=== PATIENT | female | born 1965 | race Caucasian/White ===

== ENCOUNTER → 2016-11-23 13:58 | Outpatient (CLI) | payer BC ==
[2014-09-06 05:54] VITALS: BMI 34.7
[~2016-11-23 13:58] MED LIST: BAYER CHEWABLE81 MG PO; CRESTOR10 MG PO; CYCLOBENZAPRINE10 MG PO; CYMBALTA60 MG PO; CYTOTEC200 MCG PO; DUEXIS 800-26.1 EACH PO; ESTRACE2 MG PO; FEXOFENADINE HC60 MG PO; FLUNISOLIDE29 MCG NASAL; GENTAMICIN 0.3 %5 ML EACH EYE; GLYCOLAX527 GM PO; HCTZ25 MG PO; HYDROCODONE-APA1 TAB PO; IMITREX100 MG PO; ISOSORBIDE MONO30 M1 PO; KLONOPIN1 MG PO; LEVOTHROID112 MCG PO; LEVOTHYROXINE112 MCG PO; LYRICA200 MG PO; MUCINEX600 MG PO; NORVASC10 MG PO; PERMETHRIN60 GM TOPICAL; ROBAXIN500 MG PO; TESSALON PERLE100 MG PO; TOPAMAX50 MG PO; VITAMIN D250000 UNIT PO; ZANAFLEX4 MG PO; ZIAC 5-6.25 MG1 TAB PO; ZIAC 5/6.25 MG1 TAB PO; ZOFRAN4 MG PO
== END | disposition home or self-care (01) ==
LOC: D.CT 13:58
DX: R91.8 Other nonspecific abnormal finding of lung field (principal); R76.9 Abnormal immunological finding in serum, unspecified

== ENCOUNTER → 2016-12-30 17:20 | Outpatient (CLI) | payer BC ==
[2014-09-06 05:54] VITALS: BMI 34.7
[~2016-12-30 17:20] MED LIST changes: -BAYER CHEWABLE81 MG PO; -CRESTOR10 MG PO; -CYMBALTA60 MG PO; -DUEXIS 800-26.1 EACH PO; -FEXOFENADINE HC60 MG PO; -FLUNISOLIDE29 MCG NASAL; -GLYCOLAX527 GM PO; -HCTZ25 MG PO; -IMITREX100 MG PO; -ISOSORBIDE MONO30 M1 PO; -KLONOPIN1 MG PO; -LEVOTHYROXINE112 MCG PO; -LYRICA200 MG PO; -MUCINEX600 MG PO; -NORVASC10 MG PO; -PERMETHRIN60 GM TOPICAL; -ROBAXIN500 MG PO; -TESSALON PERLE100 MG PO; -TOPAMAX50 MG PO; -VITAMIN D250000 UNIT PO; -ZANAFLEX4 MG PO; -ZIAC 5-6.25 MG1 TAB PO; -ZOFRAN4 MG PO
== END | disposition home or self-care (01) ==
LOC: D.LABREF 17:20
DX: J44.9 Chronic obstructive pulmonary disease, unspecified (principal)

== ENCOUNTER 2017-01-13 10:44 | Emergency (ER) | payer BC ==
[2014-09-06 05:54] VITALS: BMI 34.7
[2017-01-13 11:31] LABS: BASOPHILS 0.2 % (0.0-2.0); HEMATOCRIT 33.9 % (36.0-48.0); HEMOGLOBIN 11.8 g/dL (12-16); IMMATURE GRANULOCYTES 0.1 % (0-5); LYMPHOCYTES 42.3 % (15-50); MCH 30.8 pg (26.0-34.0); MCHC 34.8 g/dL (31.0-37.0); MCV 88.5 fL (80.0-100.0); MEAN PLATELET VOLUME 9.6 fL (7.4-10.4); MONOCYTES 7.6 % (2-11); NEUTROPHILS 46.8 % (40-80); PLATELET COUNT 227 10x3/uL (130-400); RBC 3.83 10x6/uL (4.00-5.40); RDW 12.7 % (11.5-14.5); WBC 8.4 10x3/uL (4.8-10.8)
[2017-01-13 11:48] LABS: UDS - AMPHET NEGATIVE QUAL (NEGATIVE); UDS - BARB NEGATIVE QUAL (NEGATIVE); UDS - BENZO NEGATIVE QUAL (NEGATIVE); UDS - COCAINE NEGATIVE QUAL (NEGATIVE); UDS - METH NEGATIVE QUAL (NEGATIVE); UDS - OPIATE POSITIVE QUAL (NEGATIVE); UDS - PCP NEGATIVE QUAL (NEGATIVE); UDS - THC NEGATIVE QUAL (NEGATIVE)
[2017-01-13 11:52] LABS: ALBUMIN 3.4 g/dL (3.4-5.0); ALKALINE PHOSPHATASE 92 U/L (46-116); ALT (SGPT) 26 U/L (10-68); BILIRUBIN - TOTAL 0.21 mg/dL (0.2-1.3); CALC OSMOLALITY 267 mosm/kg (275-300); CALCIUM 8.3 mg/dL (8.5-10.1); CARBON DIOXIDE 22.9 mmol/L (21.0-32.0); CHLORIDE - SERUM 97 mmol/L (98-107); CREATININE - SERUM 1.2 mg/dL (0.6-1.3); GLUCOSE 91 mg/dL (74-106); POTASSIUM - SERUM 3.9 mmol/L (3.5-5.1); PROTEIN - SERUM 6.7 g/dL (6.4-8.2); SODIUM 131 mmol/L (136-145); TROPONIN-I < 0.017 ng/mL (0.000-0.060); UREA NITROGEN 26 mg/dL (7-18); eGFR NON AFRICAN AMERICAN 50 mL/min (90-120)
== END 2017-01-13 16:10 | disposition home or self-care (01) ==
LOC: D.ER 10:44
PROVIDERS: Physician Assistant
DX: R07.9 Chest pain, unspecified (principal); R06.02 Shortness of breath; F17.200 Nicotine dependence, unspecified, uncomplicated; I10 Essential (primary) hypertension

== ENCOUNTER 2017-01-20 07:21 | Outpatient (CLI) | payer BC ==
[~2017-01-20] VITALS: Ht 167.6 cm; Wt 102.3 kg
--- NOTE | ~2017-01-20 | HEMODYNAMI ---
PATIENT:GEORGIA ODONNELL MEDICAL RECORD: [id number] : 65 LOCATION:D.CAT ADMISSION DATE: 01/20/17 Generatedon:01/20/20179:35 Patient name: GEORGIA ODONNELL Patient #: [id number] SSN: : 1965 Date of study: 01/20/2017 Page: Of Hemodynamic Procedure Report Patient Data Patient Demographics Procedure consent was obtained First Name: GEORGIA Gender: Female Last Name: BELLE : 1965 [facility] Initial: CHRIS Age: 51 year(s) Patient #: [id number] Race: Unknown Additional ID: [id number] Contact details [address]: [address] [place] [address] State: [place] City: [place] Zip code: [address] Admission Admission Data Admission Date: 01/20/2017 Admission Time: 7:21 Height (in.): 66 Height (cm.): 167.64 Procedure Procedure Types Cath Procedure Diagnostic Procedure LHC LHC w/Coronaries FFR/IVUS Intra-Coronary IVUS Initial Miscellaneous Procedures Moderate Sedation up to 30 minutes Procedure Description Procedure Date Procedure Date: 01/20/2017 Procedure Start Time: 8:58 Procedure End Time: 9:34 Procedure Staff Name Function Lc Covarrubias MD Performing Physician Aury Seaman RN Nurse Adis Silverio RT Monitor Christiano Kaiser RT Scrub Procedure Data Cath Procedure Fluoroscopy Diagnostic fluoroscopy Total fluoroscopy Time: 5.4 time: 5.4 min min Diagnostic fluoroscopy Total fluoroscopy dose: 774 dose: 774 mGy mGy Contrast Material Contrast Material Type Amount (ml) Isovue 300 81 Entry Location Entry Primary Successful Side Size Upsize Upsize Entry Closure Oliveira ccessful Closure Location (Fr) 1 (Fr) 2 (Fr) Remarks Device Remarks Radial Right 6 Fr Mechanical artery Short Compression Femoral Right 6 Fr Exoseal artery Short Estimated blood loss: 10 ml Diagnostic catheters Device Type Used For End Catheter Placement Terumo 5Fr Sugar Tree 110cm Procedure catheter Terumo 5Fr Judah 110cm Procedure catheter Procedure Complications No complications Procedure Medications Medication Administration Route Dosage Oxygen NC 2 l/min Heparin Flush Bag added to field 2 bags (1000units/500ml NS) Lidocaine 2% added to field 20 Radial Cocktail added to field 1 syringe (Verapomil 2mg/Nitro 400mcg/Heparin 1500units) Versed I.V. 1 mg Fentanyl I.V. 50 mcg Versed I.V. 0.5 mg Fentanyl I.V. 50 mcg Radial Cocktail I.A. 1 syringe (Verapomil 2mg/Nitro 400mcg/Heparin 1500units) Heparin Bolus I.V. 7000 units Hemodynamics Rest Heart Rate: 60 (bpm) Pressure Samples Time Site Value (mmHg) Purpose Heart Use Rate(bpm) 9:02 LV 90/13,17 Snapshot 74 9:02 AO 95/36(62) Pullback 58 9:02 LV 105/15,22 Pullback 58 9:07 AO 86/64(73) Snapshot 58 9:07 AO 104/65(84) Snapshot 59 Gradients Valve Time Site 1 Site 2 Mean SEP/DFP Peak To Heart Use (mmHg) (sec/min) Peak Rate (mmHg) (bpm) Aortic 9:02 LV AO 10 16 10 58 105/15,22 95/36(62) Calculations Valve P-P Mean Valve Index Valve Source Name Gradient Area Flow (cm2) Aortic 10 10 10 10 Snapshots Pre Cath Intra NCS Post Cath Vital Signs Time Heart Resp SPO2 NIBP Rhythm Pain Sedation Rate (ipm) (%) (mmHg) Status Level (bpm) 8:41:54 59 18 98 115/65(93) NSR 0 (11) 10(A) , No pain 8:46:08 58 18 97 110/61(87) NSR 0 (11) 10(A) , No pain 8:50:22 60 19 97 125/63(90) NSR 0 (11) 10(A) , No pain 8:54:34 56 16 100 107/63(80) NSR 0 (11) 9(A) , No pain 8:58:45 56 16 99 118/56(72) NSR 0 (11) 9(A) , No pain 9:03:06 58 16 95 113/44(70) NSR 0 (11) 9(A) , No pain 9:07:19 55 16 94 112/57(70) NSR 0 (11) 9(A) , No pain 9:11:36 57 16 95 96/55(85) NSR 0 (11) 9(A) , No pain 9:15:41 57 16 96 104/63(89) NSR 0 (11) 9(A) , No pain 9:19:51 60 16 95 108/64(71) NSR 0 (11) 9(A) , No pain 9:24:05 59 16 96 110/56(81) NSR 0 (11) 9(A) , No pain 9:27:30 60 16 97 104/57(84) NSR 0 (11) 9(A) , No pain 9:31:36 62 6 97 96/59(81) NSR 0 (11) 9(A) , No pain Medications Time Medication Route Dose Verified Delivered Reason Notes Effectiveness by by 8:41:33 Oxygen NC 2 l/min Lc Aury Per physician Dax Seaman RN 8:41:41 Heparin Flush added 2 bags Lc Lc used for Bag to Dax Covarrubias MD procedure (1000units/500ml field NS) 8:41:50 Lidocaine 2% added 20ml Lc Lc used for to vial Dax Covarrubias MD procedure field 8:42:00 Radial Cocktail added 1 Lc Lc used for (Verapomil to syringe Dax Covarrubias MD procedure 2mg/Nitro field 400mcg/Heparin 1500units) 8:47:31 Versed I.V. 1 mg Lc Aury for sedation Dax Seaman RN 8:47:42 Fentanyl I.V. 50 mcg Lc Aury for sedation Dax Seaman RN 8:51:00 Versed I.V. 0.5 mg Lc Aury for sedation Dax Seaman RN 8:51:03 Fentanyl I.V. 50 mcg Lc Aury for sedation Dax Seaman RN 9:00:36 Radial Cocktail I.A. 1 Lc Lc for (Verapomil syringe Dax Covarrubias MD vasodilation 2mg/Nitro 400mcg/Heparin 1500units) 9:17:26 Heparin Bolus I.V. 7000 Lc Lc for dose units Dax Covarrubias MD anticoagulation verified wt dr covarrubias Procedure Log Time Note 8:07:47 Time tracking: Regular hours 8:07:52 Plan of Care:Hemodynamics will remain stable., Cardiac rhythm will remain stable., Comfort level will be maintained., Respiratory function will remain adequate., Patient/ family verbilizes understanding of procedure., Procedure tolerated without complication., Recovers from procedure without complications.. 8:15:21 Adis Tsangley RT(R) sent for patient. Start room use. 8:23:15 Diagnostic Cath status Elective 8:23:18 ACC Patient presents with Stable Angina CCS Anginal Class 2--Slight limitation of ordinary activity. 8:24:14 Patient Height : 167.64 cm 8:35:26 Patient received from Pre/Post Procedure Room to CCL 2 Alert and oriented. Tansferred to table in Supine position. 8:35:27 Correct patient and procedure confirmed by team. 8:35:27 Warm blankets applied, and ryan hugger turned on for patient comfort. 8:35:29 ECG and BP/O2 sat monitors applied to patient. 8:35:29 Signed procedure consent form obtained from patient. 8:40:46 Vital chart was started 8:41:33 Oxygen 2 l/min NC was administered by Aury Seaman RN; Per physician; 8:41:41 Heparin Flush Bag (1000units/500ml NS) 2 bags added to field was administered by Lc Covarrubias MD; used for procedure; 8:41:50 Lidocaine 2% 20ml vial added to field was administered by Lc Covarrubias MD; used for procedure; 8:42:00 Radial Cocktail (Verapomil 2mg/Nitro 400mcg/Heparin 1500units) 1 syringe added to field was administered by Lc Covarrubias MD; used for procedure; 8:46:01 Baseline sample Acquired. 8:46:06 Rhythm: sinus bradycardia 8:46:14 Full Disclosure recording started 8:46:21 H&P Date Dictated: 01/17/2017 Within 30 days and on chart., H&P Addendum completed by physician on day of procedure. (MUST COMPLETE FOR ALL OUTPATIENTS). 8:46:21 Pre-procedure instructions explained to patient. 8:46:21 Pre-op teaching completed and patient verbalized understanding. 8:46:23 Family in waiting room. 8:46:24 Patient NPO since Midnight. 8:46:27 Is the patient allergic to Iodine/contrast media? No. 8:46:29 Is patient on blood thinner?No 8:46:30 Patient diabetic? No. 8:46:39 Previous problem with sedation/anesthesia? No ? 8:46:46 Snore? Yes 8:46:47 Sleep apnea? No 8:46:47 Deviated septum? No 8:46:48 Opens mouth fully? Yes 8:46:49 Sticks out tongue? Yes 8:46:50 Airway obstruction? No ? 8:46:52 Dentures? No ? 8:46:57 Pre procedure: right dorsailis pedis pulse 1+ Palpable, but thready & weak; easily obliterated 8:46:58 Modified Michael's test Ulnar < 7 seconds 8:47:00 Patient pain scale 0/10 ?. 8:47:06 IV patent on arrival in left forearm with 0.9% NaCl at [facility]. 8:47:08 Lab results completed and on chart. 8:47:13 Right Radial & Right Groin area was prepped with chlora-prep and draped in sterile fashion 8:47:14 Alarms reviewed by R. N. 8:47:14 Sharps counted by scrub and verified by R.N. 8:47:16 --------ALL STOP TIME OUT------ 8:47:16 Final Timeout: patient, procedure, and site verified with staff and physician. All members of the team are in agreement. 8:47:18 Right Radial & Right Groin site verified by team. 8:47:21 Physical assessment completed. ASA score P 2 - A patient with mild systemic disease as per Lc Covarrubias MD. 8:47:23 Sedation plan: IV Moderate Sedation Versed, Fentanyl 8:47:31 Versed 1 mg I.V. was administered by Aury Seaman RN; for sedation; 8:47:34 Use device set Radial Dx 8:47:35 Tegaderm 4 x 4 opened to sterile field. 8:47:36 Acist Manifold opened to sterile field. 8:47:36 Acist Hand Control opened to sterile field. 8:47:38 Acist Syringe opened to sterile field. 8:47:38 Medline Cath Pack opened to sterile field. 8:47:38 Bag Decanter opened to sterile field. 8:47:39 Terumo 6Fr Slender Glidesheath opened to sterile field. 8:47:39 St Sotero 260cm J .035 wire opened to sterile field. 8:47:40 MBrace Wrist Support opened to sterile field. 8:47:42 Fentanyl 50 mcg I.V. was administered by Aury Seaman RN; for sedation; 8:48:48 Cook 21G 4cm Radial Needle opened to sterile field. 8:51:00 Versed 0.5 mg I.V. was administered by Aury Seaman RN; for sedation; 8:51:03 Fentanyl 50 mcg I.V. was administered by Aury Seaman RN; for sedation; 8:58:47 Procedure started. 8:58:53 Local anesthetic to right radial artery with Lidocaine 2% by Lc Covarrubias MD.INITIAL ACCESS ONLY 9:00:00 A 6 Fr Short sheath was inserted into the Right Radial artery 9:00:36 Radial Cocktail (Verapomil 2mg/Nitro 400mcg/Heparin 1500units) 1 syringe I.A. was administered by Lc Covarrubias MD; for vasodilation; 9:00:46 A Terumo 5Fr Sugar Tree 110cm catheter was advanced over the wire and used for Procedure. 9:01:58 Zero performed for pressure channel P1 9:02:25 LV angiography performed. 9:02:27 LV gram done using CORMIER 9:02:32 EF : 60 % 9:02:48 LV hemodynamics recorded. 9:02:51 Injector settings: Ml/sec: 5, Volume: 15, 9:03:55 RCA angiography performed. 9:04:44 Catheter exchanged over wire. 9:04:49 A Terumo 5Fr Judah 110cm catheter was advanced over the wire and used for Procedure. 9:06:35 LCA angiography performed. 9:11:21 Catheter exchanged over wire. 9:11:57 Terumo 6Fr Wilmot Sheath opened to sterile field. 9:11:58 [employer] BasixCompak Inflation Kit opened to sterile field. 9:11:58 Amos BMW Montello 2 J-tip 300cm 0.014 guide wir opened to sterile field. 9:11:58 High Pressure Extension Tubing (Dax) opened to sterile field. 9:11:59 Terumo TR Band Standard opened to sterile field. 9:13:40 Local anesthetic to right femoral artery with Lidocaine 2% by Lc Covarrubias MD.ADDITIONAL ACCESS 9:14:23 A 6 Fr Short sheath was inserted into the Right Femoral artery 9:14:39 Cordis 6FR XBLAD 3.5 guide catheter opened to sterile field. 9:14:56 6 Fr XBLAD 3.5 guide catheter was inserted over the wire 9:16:31 [place] Eyak Eagleye IVUS Catheter opened to sterile field. 9:17:26 Heparin Bolus 7000 units I.V. was administered by Lc Covarrubias MD; for anticoagulation; dose verified wtih dr covarrubias 9:18:06 BMW wire advanced. 9:18:37 Wire advanced across lesion. 9:19:04 IVUS catheter advanced over wire. 9:20:49 IVUS pass to LAD lesion performed. 9:24:08 IVUS catheter removed over wire. 9:24:36 Wire removed. 9:24:37 Guide catheter removed. 9:24:39 Cordis 6Fr Exoseal opened to sterile field. 9:24:53 Sheath removed intact; hemostasis achieved with Exoseal to the Right Femoral artery. 9:25:11 Procedure ended.(Physican Out) 9:25:32 Fluoroscopy time 05.40 minutes. 9:25:36 Flurop Dose total: 774 9:25:36 Fluoroscopy dose: 774 mGy 9:25:53 Contrast amount:Isovue 300 81ml. 9:26:04 Sharps counted by scrub and verified by R.N. 9:26:11 Insertion/operative site no bleeding no hematoma. 9:28:44 Sheath removed intact; hemostasis achieved with Mechanical Compression to the Right Radial artery. 9:28:50 TR band inflated with 12cc of air. 9:28:52 Insertion/operative site no bleeding no hematoma. 9:28:54 Post Procedure Pulses reassessed and unchanged 9:28:58 Post-op/insertion site Right Femoral artery dressed using a 4 x 4 and Tegaderm. 9:29:00 Post-procedure physical assessment completed. ASA score P 2 - A patient with mild systemic disease as per Lc Covarrubias MD. 9:29:08 Post procedure rhythm: unchanged. 9:29:11 Estimated blood loss: 10 ml 9:29:12 Post procedure instruction explained to patient.Patient verbalizes understanding. 9:29:13 Patient needs reinforcement of post procedure teaching. 9:29:32 Procedure type changed to Cath procedure, Diagnostic procedure, LHC, LHC w/Coronaries, FFR/IVUS, Intra-Coronary IVUS Initial, Miscellaneous Procedures, Moderate Sedation up to 30 minutes 9:29:40 Procedure Complication : No complications 9:31:57 Procedure and supply charges have been captured, reviewed, submitted and are correct. 9:34:11 Vital chart was stopped 9:34:12 See physician's report for complete and final results. 9:34:13 Report given to Pre/Post Procedure Room. 9:34:18 Patient transfered to Pre/Post Procedure Room with Stretcher. 9:34:20 Procedure ended. 9:34:20 Full Disclosure recording stopped 9:34:26 End room use (Document Last) Device Usage Item Name Manufacture Quantity Catalog Hospital Part Current Minimal Lot# / Number Charge Number Stock Stock Serial# Code Tegaderm 4 1 [id number] [id number] 527048 5 x 4 Acist Acist 1 25103 922084 286297 345330 5 Manifold Medical [employer] Inc Acist Hand Acist 1 34800 656134 790829 961272 5 Control Medical Systems Inc Acist Acist 1 13765 459872 137433 833822 20 Syringe Medical Systems Inc Medline Cardinal 1 [id number] 783992 53916 040984 5 Cath Pack Health Bag Microtek 1 2002S 692062 71463 869722 5 [employer]er[employer] Inc. Terumo 6Fr Terumo 1 [id number] 391882 535668 093749 [address] S[address] St Sotero 1 296806 188242 072655 372589 30 260cm J .035 wire MBrace Advanced 1 [id number] 372211 08717 064875 5 Wrist Vascular Support Dynamics Cook 21G Toptal 1 [id number] 288048 013856 598012 5 4cm Radial Needle Terumo 5Fr Terumo 1 405013 164227 516894 515705 5 Sugar Tree 110cm catheter Terumo 5Fr Terumo 1 405023 172447 188426 289022 5 Judah 110cm catheter Terumo 6Fr Terumo 1 [id number] 204097 716937 457035 40 Wilmot Sheath Merit Merit 1 [id number] 521216 215032 252259 15 BasixCompak Medical Inflation Kit Amos BMW Amos 1 [id number] 787124 008452 673190 5 Montello 2 Vascular J-tip 300cm 0.014 guide wir High Merit 1 [id number] 423861 78125 429942 10 Pressure Medical Extension Tubing (Covarrubias) Terumo TR Terumo 1 [id number] 352893 505246 160699 40 Band Standard Cordis 6FR Cardinal 1 [id number] 323468 680859 203793 10 XBLAD 3.5 Health guide catheter [place] 1 [id number] 206648 551864 145426 8 Eyak Eagleye IVUS Catheter Cordis 6Fr Cardinal 1 EX600 593398 316337 009506 10 [facility] Health Signature Audit [place] Stage Time Signature Unsigned Intra-Procedure 01/20/2017 Adis Silverio 9:35:09 AM RT(R) Signatures Monitor : Adis Silverio RT Signature : Date : Time : [place] [id number] [facility] [place] [address]
--- NOTE | ~2017-01-20 | OP ---
PATIENT NAME: GEORGIA ODONNELL MEDICAL RECORD: [id number] :65 LOCATION:D.CAT ADMISSION DATE: SURGEON: GEE FINK M.D. DATE OF OPERATION: 01/20/2017 REFERRING PHYSICIAN: Gucci Larios MD. PROCEDURES PERFORMED: 1. Selective coronary angiography. 2. Left heart catheterization with ventriculogram. 3. Intravascular ultrasound of the LAD. INDICATION: A 51-year-old who presents with chest discomfort and abnormal stress test. EQUIPMENT USED: Diagnostic 5-Slovak Judah catheter. INTERVENTION: A 6-Slovak XB LAD guide, BMW guidewire, intravascular ultrasound catheter. TECHNIQUE: A 6-Slovak sheath was inserted in retrograde fashion in the right radial artery. Next, selective coronary angiography was performed in standard views 5-Slovak Judah catheter. Left heart catheterization was performed using Judah catheter as well. CORONARY ANATOMY: 1. Left main: Left main trunk is moderate in caliber. It gives rise to the LAD and circumflex. There is no obstruction. 2. LAD: This is a moderate-caliber vessel extending to the apex. The proximal to mid vessel demonstrates smooth 40% stenosis. 3. Circumflex: This vessel is moderate in caliber. It is a smooth-walled vessel and angiographically normal. 4. Right coronary: This vessel is large in caliber and dominant. The mid vessel has a smooth 20%-30% stenosis. 5. Left ventricle: Left ventricle is normal in size and function. No wall motion abnormalities are seen. Estimated ejection fraction 60%. DESCRIPTION OF INTERVENTION: There was some concern that the LAD lesion may have been worsened on the angiogram. She had a positive stress test. At this point, a femoral approach was performed as there was not sufficient backup with the diagnostic catheter. A 6-Slovak sheath was inserted in retrograde fashion in the right common femoral artery. Next, 7000 units of heparin was infused. A 6-Slovak XB LAD guide was advanced and engaged in the left main coronary artery. Next, a BMW guidewire was placed in the distal vessel. Intravascular ultrasound catheter was then advanced and a run was performed visualizing the proximal to mid LAD. On pullback to the mid LAD, there appeared to be an eccentric 60% stenosis. The proximal vessel appeared to have about 40% stenosis. There is some mild plaque noted in the proximal LAD as well as the distal left main. At this point, the wire and guide were removed. IMPRESSION: Moderate disease involving the LAD. It does not appear to be flow-limiting by IVUS. RECOMMENDATIONS: I will place her on Imdur to see if this will resolve her symptoms, may also consider Cardiolite stress test and make sure there is no OPERATIVE REPORT [id number] GEORGIA ODONNELL evidence of ischemia on the anterior wall. TRANSINT:[id number] Voice Confirmation ID: [id number] DOCUMENT ID: [id number] GEE FINK M.D. CC: [id number] DICTATION DATE: 01/20/17932 CHARGE MASTER SPECIALIST: 01/20/17 [address] [facility] [address] [place] [address]
[2017-01-20] MEDS ORDERED: CYMBALTA60 MG PO (07:39)
[2017-01-20] MEDS ORDERED: ROBAXIN500 MG PO (07:39)
[2017-01-20] MEDS ORDERED: DUEXIS 800-26.1 EACH PO (07:40)
[2017-01-20] MEDS ORDERED: HCTZ25 MG PO (07:41)
[2017-01-20] MEDS ORDERED: LYRICA200 MG PO (07:41)
[2017-01-20] MEDS ORDERED: KLONOPIN1 MG PO (07:41)
[2017-01-20] MEDS ORDERED: NORVASC10 MG PO (07:42)
[2017-01-20] MEDS ORDERED: TOPAMAX50 MG PO (07:42)
[2017-01-20] MEDS ORDERED: VITAMIN D250000 UNIT PO (07:43)
[2017-01-20] MEDS ORDERED: TESSALON PERLE100 MG PO (07:44)
[2017-01-20] MEDS ORDERED: LEVOTHYROXINE112 MCG PO (07:45)
[2017-01-20] MEDS ORDERED: MUCINEX600 MG PO (07:45)
[2017-01-20] MEDS ORDERED: ZIAC 5-6.25 MG1 TAB PO (07:45)
[2017-01-20] MEDS ORDERED: IMITREX100 MG PO (07:46)
[2017-01-20] MEDS ORDERED: ZOFRAN4 MG PO (07:46)
[2017-01-20] MEDS ORDERED: ZANAFLEX4 MG PO (07:47)
[2017-01-20] MEDS ORDERED: FEXOFENADINE HC60 MG PO (07:48)
[2017-01-20] MEDS ORDERED: FLUNISOLIDE29 MCG NASAL (07:48)
[2017-01-20] MEDS ORDERED: BAYER CHEWABLE81 MG PO (07:49)
[2017-01-20] MEDS ORDERED: PERMETHRIN60 GM TOPICAL (07:49)
[2017-01-20] MEDS ORDERED: GLYCOLAX527 GM PO (07:49)
[2017-01-20] MEDS ORDERED: CRESTOR10 MG PO (07:50)
[2017-01-20 07:53] VITALS: BP 110/47; Ht 167.6 cm; Wt 102.3 kg
[2017-01-20 08:04] LABS: BASOPHILS 0.3 % (0.0-2.0); EOSINOPHILS 2.9 % (0-7); HEMATOCRIT 35.7 % (36.0-48.0); HEMOGLOBIN 12.2 g/dL (12-16); IMMATURE GRANULOCYTES 0.2 % (0-5); LYMPHOCYTES 43.2 % (15-50); MCH 30.7 pg (26.0-34.0); MCHC 34.2 g/dL (31.0-37.0); MCV 89.7 fL (80.0-100.0); MEAN PLATELET VOLUME 10.1 fL (7.4-10.4); MONOCYTES 8.1 % (2-11); NEUTROPHILS 45.3 % (40-80); PLATELET COUNT 219 10x3/uL (130-400); RBC 3.98 10x6/uL (4.00-5.40); RDW 12.6 % (11.5-14.5); WBC 5.8 10x3/uL (4.8-10.8)
[2017-01-20 08:15] LABS: ANION GAP 13.2 mmol/L (8-16); CALCIUM 8.9 mg/dL (8.5-10.1); CARBON DIOXIDE 25.3 mmol/L (21.0-32.0); CREATININE - SERUM 1.2 mg/dL (0.6-1.3); POTASSIUM - SERUM 3.5 mmol/L (3.5-5.1)
--- NOTE | 2017-01-20 09:58 | NUR ---
TR BAND TO R/WRIST CDI NO BLEEDING NO HEMATOMA NOTED. 6 FR EXOSEAL R/GROIN CDI NO BLEEDING NO HEMATOMA NOTED. VSS WITH CHEST PAIN DENIED O2 AT 2 LITERS NASAL SAT 97% INSTRUCTED PATIENT AND FAMILY ON NEED TO KEEP HEAD FLAT ON PILLOW WITH RLE STRAIGHT AND NO BENDING OR FLEXING OF WRIST
[2017-01-20] MEDS ORDERED: ISOSORBIDE MONO30 M1 PO (10:06)
--- NOTE | 2017-01-20 10:36 | NUR ---
HR 76 BP 128/65 CHEST PAIN IS DENIED. TR BAND TO R/WRIST CDI NO BLEEDING NO HEMATOMA NOTED. 6 FR EXOSEAL R/GROIN CDI NO BLEEDING NO HEMATOMA NOTED. FAMILY AT SIDE
--- NOTE | 2017-01-20 10:48 | NUR ---
VSS WITH CHEST PAIN DENIED TR BAND REMAINS CDI INTACT. R/GROIN SOFT CDI SANDWICH AND DRINK TO BEDSIDE
--- NOTE | 2017-01-20 11:55 | NUR ---
1145 PT DENIES ANY C/O. TR BAND TO RIGHT WRIST IS CDI, NO BLEEDING OR HEMATOMA NOTED. DRESSING TO RIGHT GROIN IS CDI, NO BLEEDING OR HEMATOMA NOTED, PEDAL PULSES PALPABLE. DENIES ANY C/O.
--- NOTE | 2017-01-20 12:48 | NUR ---
PATIENT SLEEPING QUIETLY NO DISTRESS VSS
--- NOTE | 2017-01-20 13:15 | NUR ---
PIV REMOVED WITH DRESSING APPLIED PATIENT UP TO BATHROOM WITH NO COMPLAINTS. BACK TO ROOM WITH DAUGHTER AT SIDE
--- NOTE | 2017-01-20 13:35 | NUR ---
TR BAND REMOVED WITH NO BLEEDING NO HEMATOMA NOTED. 6 FR EXOSEAL R/GROIN CDI CHEST PAIN IS DENIED. VERBAL AND WRITTEN DISCHARGE INSTRUCTIONS GONE OVER WITH PATIENT AND DAUGHTER. SCRIPT IN HAND FOR IMDUR 30 MG Q DAY LEFT VIA WC TO PARKING FOR TRANSPORT HOME
== END 2017-01-20 13:37 ==
LOC: D.CATH 07:21
PROVIDERS: Internal Medicine Cardiovascular Disease
DX: I25.10 Atherosclerotic heart disease of native coronary artery without angina pectoris (principal); R94.39 Abnormal result of other cardiovascular function study

== ENCOUNTER → 2017-01-28 07:19 | Outpatient (CLI) | payer BC ==
[2017-01-20 07:53] VITALS: BMI 36.4
[~2017-01-28 07:19] MED LIST changes: +BAYER CHEWABLE81 MG PO; +CRESTOR10 MG PO; +CYMBALTA60 MG PO; +DUEXIS 800-26.1 EACH PO; +FEXOFENADINE HC60 MG PO; +FLUNISOLIDE29 MCG NASAL; +GLYCOLAX527 GM PO; +HCTZ25 MG PO; +IMITREX100 MG PO; +ISOSORBIDE MONO30 M1 PO; +KLONOPIN1 MG PO; +LEVOTHYROXINE112 MCG PO; +LYRICA200 MG PO; +MUCINEX600 MG PO; +NORVASC10 MG PO; +PERMETHRIN60 GM TOPICAL; +ROBAXIN500 MG PO; +TESSALON PERLE100 MG PO; +TOPAMAX50 MG PO; +VITAMIN D250000 UNIT PO; +ZANAFLEX4 MG PO; +ZIAC 5-6.25 MG1 TAB PO; +ZOFRAN4 MG PO
== END | disposition home or self-care (01) ==
LOC: D.RT 07:19
DX: R13.12 Dysphagia, oropharyngeal phase (principal); J44.9 Chronic obstructive pulmonary disease, unspecified

== ENCOUNTER 2017-03-01 12:04 | Outpatient (CLI) | payer BC ==
[~2017-03-01] VITALS: Ht 167.6 cm; Wt 95.9 kg
--- NOTE | ~2017-03-01 | HEMODYNAMI ---
PATIENT:GEORGIA ODONNELL MEDICAL RECORD: [id number] : 65 LOCATION:D.CAT ADMISSION DATE: 03/01/17 Generatedon:03/01/201716:01 Patient name: GEORGIA ODONNELL Patient #: [id number] SSN: : 1965 Date of study: 03/01/2017 Page: Of Hemodynamic Procedure Report Patient Data Patient Demographics Procedure consent was obtained First Name: GEORGIA Gender: Female Last Name: BELLE : 1965 [facility] Initial: CHRIS Age: 51 year(s) Patient #: [id number] Race: Unknown Additional ID: [id number] Contact details [address]: [address] [place] [address] State: [place] City: [place] Zip code: [address] Past Medical History Allergies Allergen Reaction Date Comments Reported Sulfa drugs 03/01/2017 Other allergy 03/01/2017 Erythromycin Admission Admission Data Admission Date: 03/01/2017 Admission Time: 12:04 Procedure Procedure Types Cath Procedure PCI Procedure Coronary Stent Initial Miscellaneous Procedures Moderate Sedation up to 30 minutes Procedure Description Procedure Date Procedure Date: 03/01/2017 Procedure Start Time: 15:29 Procedure End Time: 16:00 Procedure Staff Name Function Lc Verduzco MD Performing Physician Jesu Thomas RN Nurse Ioana Driscoll RT Monitor Wilfredo Lala RT Scrub Christiano Kaiser RT Commanding Officer Motorized Squad Procedure Data Cath Procedure Fluoroscopy Diagnostic fluoroscopy Total fluoroscopy Time: 5.6 time: 5.6 min min Diagnostic fluoroscopy Total fluoroscopy dose: 816 dose: 816 mGy mGy Contrast Material Contrast Material Type Amount (ml) Isovue 300 92 Entry Location Entry Primary Successful Side Size Upsize Upsize Entry Closure Succes sful Closure Location (Fr) 1 (Fr) 2 (Fr) Remarks Device Remarks Femoral Right 6 Fr Exoseal artery Short Estimated blood loss: 10 ml Procedure Complications No complications Procedure Medications Medication Administration Route Dosage Oxygen NC 2 l/min Heparin Flush Bag added to field 2 bags (1000units/500ml NS) 0.9% NaCl I.V. ml/hr Fentanyl I.V. 100 mcg Versed I.V. 2 mg Fentanyl I.V. 50 mcg Versed I.V. 1 mg Fentanyl I.V. 50 mcg Versed I.V. 1 mg Nitroglycerin IC/IA I.C. 50 mcg Heparin Bolus I.V. 9500 units Nitroglycerin IC/IA I.C. 50 mcg Brilinta P.O. 180 mg Hemodynamics Rest Heart Rate: 68 (bpm) Snapshots Pre Cath Intra NCS Post Cath Vital Signs Time Heart Resp SPO2 NIBP (mmHg) Rhythm Pain Sedation Rate (ipm) (%) Status Level (bpm) 15:14:08 65 18 100 149/80(104) NSR 0 (11) 10(A) , No pain 15:18:26 63 18 100 143/76(109) NSR 0 (11) 10(A) , No pain 15:22:40 60 17 99 114/77(98) NSR 0 (11) 10(A) , No pain 15:26:54 60 19 99 120/58(84) NSR 0 (11) 10(A) , No pain 15:31:12 60 17 96 110/55(79) NSR 0 (11) 9(A) , No pain 15:36:17 63 18 96 101/70(94) NSR 0 (11) 9(A) , No pain 15:40:23 67 16 96 91/71(86) NSR 0 (11) 9(A) , No pain 15:45:20 66 18 97 119/67(83) NSR 0 (11) 9(A) , No pain 15:49:36 63 18 97 100/61(86) NSR 0 (11) 9(A) , No pain 15:53:44 68 19 97 109/62(84) NSR 0 (11) 9(A) , No pain 15:57:53 65 17 98 115/72(104) NSR 0 (11) 10(A) , No pain Medications Time Medication Route Dose Verified Delivered Reason Notes Effectiveness by by 15:19:17 Oxygen NC 2 Jesu Nails Per physician l/min William Thomas RN RN 15:19:27 Heparin Flush added 2 Jesu Nails used for Bag to bags William Thomas RN procedure (1000units/500ml field RN NS) 15:19:39 0.9% NaCl I.V. ml/hr Jesu Jesu Per physician William Thomas RN RN 15:24:51 Fentanyl I.V. 100 Jesu Jesu for sedation mcg William Thomas RN RN 15:24:57 Versed I.V. 2 mg Jesu Jesu for sedation William Thomas RN RN 15:27:39 Fentanyl I.V. 50 Jesu Jesu for sedation mcg William Thomas RN RN 15:28:20 Versed I.V. 1 mg Jesu Jesu for sedation William Thomas RN RN 15:29:30 Fentanyl I.V. 50 Jesu Jesu for sedation mcg William Thomas RN RN 15:29:34 Versed I.V. 1 mg Jesu Jesu for sedation William Thomas RN RN 15:38:52 Nitroglycerin I.C. 50 Jesu Lc for IC/IA mcg William Verduzco MD vasodilation RN 15:39:10 Heparin Bolus I.V. 9500 Jesu Jesu for units William Thomas RN anticoagulation RN 15:50:12 Nitroglycerin I.C. 50 Jesu Lc for IC/IA mcg William Verduzco MD vasodilation RN 15:57:28 Brilinta P.O. 180 Jesu Jesu for mg William Thomas RN antiplatelet RN therapy Procedure Log Time Note 15:00:01 Time tracking: Regular hours 15:00:03 Jesu Thomas RN sent for patient. Start room use. 15:00:05 Plan of Care:Hemodynamics will remain stable., Cardiac rhythm will remain stable., Comfort level will be maintained., Respiratory function will remain adequate., Patient/ family verbilizes understanding of procedure., Procedure tolerated without complication., Recovers from procedure without complications.. 15:02:29 Bag Decanter opened to sterile field. 15:02:53 Acist Syringe opened to sterile field. 15:02:54 Medline Cath Pack opened to sterile field. 15:03:09 Tegaderm 4 x 4 opened to sterile field. 15:03:11 Acist Manifold opened to sterile field. 15:03:14 St Sotero 260cm J .035 wire opened to sterile field. 15:03:16 Merit BasixCompak Inflation Kit opened to sterile field. 15:03:17 Terumo 6Fr [place] Sheath opened to sterile field. 15:03:26 Acist Hand Control opened to sterile field. 15:12:53 Patient received from Pre/Post Procedure Room to CCL 2 Alert and oriented. Tansferred to table in Supine position. 15:12:54 Warm blankets applied, and ryan hugger turned on for patient comfort. 15:12:54 Correct patient and procedure confirmed by team. 15:12:55 Signed procedure consent form obtained from patient. 15:12:56 ECG and BP/O2 sat monitors applied to patient. 15:12:57 Full Disclosure recording started 15:12:58 Vital chart was started 15:13:02 Rhythm: sinus rhythm 15:14:21 Baseline sample Acquired. 15:17:36 H&P Date Dictated: 02/25/2017 Within 30 days and on chart., H&P Addendum completed by physician on day of procedure. (MUST COMPLETE FOR ALL OUTPATIENTS). 15:17:38 Pre-procedure instructions explained to patient. 15:17:39 Pre-op teaching completed and patient verbalized understanding. 15:17:40 Family in waiting room. 15:17:42 Patient NPO since Midnight. 15:17:59 Patient allergic to Sulfa drugs 15:18:07 Patient allergic to Other allergyErythromycin 15:18:13 Is the patient allergic to Iodine/contrast media? No. 15:18:16 Is patient on blood thinner?No 15:18:24 Patient diabetic? No. 15:18:27 Previous problem with sedation/anesthesia? No ? 15:18:28 Snore? No 15:18:29 Sleep apnea? No 15:18:30 Deviated septum? No 15:18:31 Opens mouth fully? Yes 15:18:31 Sticks out tongue? Yes 15:18:33 Airway obstruction? No ? 15:18:34 Dentures? No ? 15:18:37 Pre procedure: right dorsailis pedis pulse 2+ Normal; easily identifiable; not easily obliterated 15:18:42 Patient pain scale 0/10 ?. 15:18:47 IV patent on arrival in left hand with 0.9% NaCl at [facility]. 15:18:59 Lab results completed and on chart. 15:19:03 Right groin area was prepped with chlora-prep and draped in sterile fashion 15:19:05 Alarms reviewed by Cyndi Song 15:19: Sharps counted by scrub and verified by R.N. 15:19:17 Oxygen 2 l/min NC was administered by Jesu Thomas RN; Per physician; 15::27 Heparin Flush Bag (1000units/500ml NS) 2 bags added to field was administered by Jesu Thomas RN; used for procedure; 15::39 0.9% NaCl ml/hr I.V. was administered by Jesu Thomas RN; Per physician; 15::00 Final Timeout: patient, procedure, and site verified with staff and physician. All members of the team are in agreement. 15:22:01 Right groin site verified by team. 15::04 Physical assessment completed. ASA score P 2 - A patient with mild systemic disease as per Lc Verduzco MD. 15:22:08 Sedation plan: IV Moderate Sedation Versed, Fentanyl 15:24:51 Fentanyl 100 mcg I.V. was administered by Jesu Thomas RN; for sedation; 15::57 Versed 2 mg I.V. was administered by Jesu Thomas RN; for sedation; 15::39 Fentanyl 50 mcg I.V. was administered by Jesu hTomas RN; for sedation; 15:28:20 Versed 1 mg I.V. was administered by Jesu Thomas RN; for sedation; 15:28:25 Zero performed for pressure channel P1 15:29:21 Procedure started. 15:29:24 Local anesthetic to right femoral artery with Lidocaine 2% by Lc Verduzco MD.INITIAL ACCESS ONLY 15:29:30 Fentanyl 50 mcg I.V. was administered by Jesu Thomas RN; for sedation; 15:29:34 Versed 1 mg I.V. was administered by Jesu Thomas RN; for sedation; 15:33:13 A 6 Fr Short sheath was inserted into the Right Femoral artery 15:33:54 Amos BMW [place] 2 Straight 300cm 0.014 guide opened to sterile field. 15:33:55 High Pressure Extension Tubing (Dax) opened to sterile field. 15:33:56 Cordis 6FR XBLAD 3.5 guide catheter opened to sterile field. 15:34:15 6 Fr XBLAD 3.5 guide catheter was inserted over the wire 15:37:02 RUBINA wire advanced. 15:38:52 Nitroglycerin IC/IA 50 mcg I.C. was administered by Lc Verduzco MD; for vasodilation; 15:39:10 Heparin Bolus 9500 units I.V. was administered by Jesu Thomas RN; for anticoagulation; 15:44:27 Inflation Number: 1 A Medtronic Resolute 2.75 X 26 stent was prepped and advanced across the Mid LAD. The stent was deployed at 10 PEACE for 0:20 (min:sec). 15:45:19 Stent catheter was removed intact over wire. 15:49:23 Inflation Number: 2 A Medtronic Resolute 2.75 X 12 stent was prepped and advanced across the Mid LAD. The stent was deployed at 10 PEACE for 0:34 (min:sec). 15:49:39 Stent catheter was removed intact over wire. 15:50:12 Nitroglycerin IC/IA 50 mcg I.C. was administered by Lc Verduzco MD; for vasodilation; 15:52:29 Wire removed. 15:52:30 Guide catheter removed. 15:53:09 Sheath removed intact; hemostasis achieved with Exoseal to the Right Femoral artery. 15:53:12 Procedure ended.(Physican Out) 15:53:27 Fluoroscopy time 05.60 minutes. 15:53:39 Flurop Dose total: 816 15:53:39 Fluoroscopy dose: 816 mGy 15:53:42 Contrast amount:Isovue 300 92ml. 15:53:44 Sharps counted by scrub and verified by R.N. 15:53:46 Insertion/operative site no bleeding no hematoma. 15:53:52 Post-op/insertion site Right Femoral artery dressed using a 4 x 4 and Tegaderm. 15:53:56 Post right femoral artery:stable, clean and dry 15:53:58 Post Procedure Pulses reassessed and unchanged 15:54:00 Post-procedure physical assessment completed. ASA score P 2 - A patient with mild systemic disease as per Lc Verduzco MD. 15:54:02 Post procedure rhythm: unchanged. 15:54:04 Estimated blood loss: 10 ml 15:54:06 Post procedure instruction explained to patient.Patient verbalizes understanding. 15:54:06 Patient needs reinforcement of post procedure teaching. 15:54:23 Procedure type changed to Cath procedure, PCI procedure, Coronary Stent Initial, Miscellaneous Procedures, Moderate Sedation up to 30 minutes 15:54:29 Procedure Complication : No complications 15:57:13 Cordis 6Fr Exoseal opened to sterile field. 15:57:28 Brilinta 180 mg P.O. was administered by Jesu Thomas RN; for antiplatelet therapy; 15:57:52 Procedure and supply charges have been captured, reviewed, submitted and are correct. 15:57:54 See physician's report for complete and final results. 15:57:58 Report given to Pre/Post Procedure Room. 16:00:43 Vital chart was stopped 16:00:46 Patient transfered to Pre/Post Procedure Room with Stretcher. 16:00:58 Procedure ended. 16:00:58 Full Disclosure recording stopped 16:01:03 End room use (Document Last) Intervention Summary Intervention Notes Time ActionType Lesion and Equipment Action# Pressure Duration Attributes Used 15:44:27 Place stent Mid LAD Medtronic 1 10 00:20 Resolute 2.75 X 26 stent 15:49:23 Place stent Mid LAD Medtronic 2 10 00:34 Resolute 2.75 X 12 stent Device Usage Item Name Manufacture Quantity Catalog Hospital Part Current Minimal Lot# / Number Charge Number Stock Stock Serial# Code Bag [facility] 1 2002S 188098 69022 713252 5 Decanter Medical Inc. Acist Acist 1 07385 798684 105368 473000 20 Syringe Medical Systems Inc Medline Cardinal 1 [id number] 581291 47234 711694 5 MicroPort ([place]) [facility] 4 3M 1 1626W 223794 514997 815320 5 x 4 Acist Acist 1 86580 904197 627202 212360 [address] S[address] St Sotero 1 306869 959321 458626 606709 30 260cm J .035 wire Merit Merit 1 [id number] 472375 089888 676043 15 BasixCompak Medical Inflation Kit Terumo 6Fr Terumo 1 [id number] 899718 630460 860642 40 [place] Sheath Acist Hand Acist 1 30875 832300 862688 096226 5 Control Medical Systems Inc Amos BMW Amos 1 6093905 541844 099352 319445 5 [place] 2 Vascular Straight 300cm 0.014 guide High Merit 1 [id number] 224446 47395 939521 10 Pressure Medical Extension Tubing (Verduzco) Cordis 6FR Cardinal 1 [id number] 611715 767298 531584 10 XBLAD 3.5 Health guide catheter Medtronic Medtronic 1 [id number] 373334 244085 5 [id number] Resolute 2.75 X 26 stent Medtronic Medtronic 1 [id number] 196726 023131 9 [id number] Resolute 2.75 X 12 stent Cordis 6Fr Cardinal 1 [id number] 073928 517240 885779 10 [facility] Signature Audit [place] Stage Time Signature Unsigned Intra-Procedure 03/01/2017 Ioana 4:01:22 PM Counts RT(R) Signatures Monitor : Ioana Signature : Counts RT Date : Time : [address] [address]
[2017-03-01] MEDS ORDERED: AEROSPAN8.9 GM INH (12:39)
[2017-03-01] MEDS ORDERED: FUROSEMIDE40 MG PO (12:39)
[2017-03-01] MEDS ORDERED: FISH OIL 1,0001 CA1 PO (12:39)
[2017-03-01] MEDS ORDERED: ATROVENT 0.02%2.5 ML UPD (12:40)
[2017-03-01] MEDS ORDERED: LYRICA200 MG PO (12:41)
[2017-03-01] MEDS ORDERED: MUCINEX600 MG PO (12:41)
[2017-03-01] MEDS ORDERED: ZOFRAN4 MG PO (12:43)
[2017-03-01] MEDS ORDERED: OMEPRAZOLE40 MG PO (12:43)
[2017-03-01] MEDS ORDERED: PROAIR HFA8.5 GM INH (12:44)
[2017-03-01] MEDS ORDERED: SYMBICORT 16010.2 GM INH (12:45)
[2017-03-01] MEDS ORDERED: TOPAMAX100 MG PO (12:46)
[2017-03-01] MEDS ORDERED: ZANAFLEX4 MG PO (12:46)
[2017-03-01 12:52] VITALS: BP 120/67; Ht 167.6 cm; Wt 95.9 kg
[2017-03-01 13:01] LABS: BASOPHILS 0.7 % (0-2); EOSINOPHILS 7.5 % (0-7); HEMATOCRIT 34.7 % (36.0-48.0); HEMOGLOBIN 11.8 g/dL (12-16); IMMATURE GRANULOCYTES 0.2 % (0-5); LYMPHOCYTES 35.3 % (15-50); MCH 30.7 pg (26.0-34.0); MCV 90.4 fL (80.0-100.0); NEUTROPHILS 49.3 % (40-80); PLATELET COUNT 222 10x3/uL (130-400); RBC 3.84 10x6/uL (4.00-5.40); RDW 13.1 % (11.5-14.5)
[2017-03-01 13:36] LABS: ANION GAP 15.6 mmol/L (8-16); CALCIUM 9.2 mg/dL (8.5-10.1); CARBON DIOXIDE 21.3 mmol/L (21.0-32.0); POTASSIUM - SERUM 3.9 mmol/L (3.5-5.1)
--- NOTE | 2017-03-01 16:30 | NUR ---
RESTING, RIGHT GROIN CDI, NO HEMATOMA OR BLEEDING NOTED, SOFT TO TOUCH.
[2017-03-01] MEDS ORDERED: BRILINTA90 MG PO (16:47)
--- NOTE | 2017-03-01 17:00 | NUR ---
CONTINUES TO REST, RIGHT GROIN CDI, NO CHANGES NOTED. FAMILY WENT TO DINNER
--- NOTE | 2017-03-01 20:10 | NUR ---
UP TO REST ROOM-VOID, DRINKING COFFEE, DENIES CHEST PAIN, IV D'C WITH CATH TIP INTACT, WRITTEN AND VERBAL INSTRUCTIONS GIVEN AND UNDERSTOOD. RIGHT GROIN CDI, NO HEMATOMA OR BLEEDING NOTED, SOFT TO TOUCH. FAMILY AT SIDE. DENIES FURTHUR NEEDS.
--- NOTE | 2017-03-03 08:04 | OP ---
PATIENT NAME: GEORGIA ODONNELL MEDICAL RECORD: [id number] :65 LOCATION:D.CAT ADMISSION DATE: SURGEON: GEE FINK M.D. DATE OF OPERATION: 03/01/2017 REFERRING PHYSICIAN: Gucci Larios MD. PROCEDURES PERFORMED: PTCA and stent placed in LAD. INDICATION: A 51-year-old with coronary artery disease presents with recurrent angina that is becoming unstable. EQUIPMENT USED: A 6-Kosovan XB LAD guide, BMW guide wire, 2.75 x 26 mm Resolute stent, 2.75 x 12 mm Resolute stent. DESCRIPTION OF INTERVENTION: A 6-Kosovan sheath was inserted in retrograde fashion in the right common femoral artery. Next, a 6-Kosovan XB LAD guide was advanced and engaged in the left main coronary. Injections revealed a 67% stenosis in the proximal LAD. It appeared worse than the last angiogram this previous month. It was somewhat hazy suggestive of a ruptured plaque. At this point, a BMW guide wire was placed down the distal LAD. A 100 units per kilogram of heparin was then infused. A 2.75 x 26 mm Resolute stent was placed across these 2 lesions in question. The stent was deployed at 10 atmospheres. Injection reveals stent to be widely patent with 0% residual stenosis. There was significant waste in the stent at deployment. Injection shows stent to be widely patent. 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 A 2.75 x 12-mm Resolute stent was placed proximal to the existing stent. The stent was deployed at 12 atmospheres. Injection revealed both stents to be widely patent with 0% residual stenosis. There is marked improvement in distal flow as well as the caliber of the vessel. At this point, the wire and guide were removed. IMPRESSION: Successful percutaneous transluminal coronary angioplasty and stenting to the LAD with 0% residual stenosis. TRANSINT:[id number] Voice Confirmation ID: [id number] DOCUMENT ID: [id number] GEE FINK M.D. at 0804 CC: [id number] DICTATION DATE: 03/01/17 1604 DATA ANALYST: 03/02/17 0008 DEP CLI 03/01/17 [place] [address]
== END 2017-03-01 20:30 | disposition home or self-care (01) ==
LOC: D.CATH 12:04
PROVIDERS: Internal Medicine Cardiovascular Disease
DX: I25.110 Atherosclerotic heart disease of native coronary artery with unstable angina pectoris (principal)

== ENCOUNTER → 2017-03-23 12:38 | Outpatient (CLI) | payer BC ==
[2017-03-01 12:52] VITALS: BMI 34.1
[~2017-03-23 12:38] MED LIST changes: +AEROSPAN8.9 GM INH; +ATROVENT 0.02%2.5 ML UPD; +BRILINTA90 MG PO; +FISH OIL 1,0001 CA1 PO; +FUROSEMIDE40 MG PO; +OMEPRAZOLE40 MG PO; +PROAIR HFA8.5 GM INH; +SYMBICORT 16010.2 GM INH; +TOPAMAX100 MG PO; +VALIUM5 MG PO
== END | disposition home or self-care (01) ==
LOC: D.CT 12:38
DX: M54.12 Radiculopathy, cervical region (principal); R20.9 Unspecified disturbances of skin sensation

== ENCOUNTER 2017-03-24 16:44 | Observation (INO) | payer BC ==
[~2017-03-24] VITALS: Ht 167.6 cm; Wt 95.4 kg
[~2017-03-24 16:44] MED LIST changes: -VALIUM5 MG PO
[2017-03-24 17:28] LABS: BASOPHILS 0.3 % (0-2); EOSINOPHILS 3.8 % (0-7); HEMATOCRIT 36.7 % (36.0-48.0); HEMOGLOBIN 12.3 g/dL (12-16); IMMATURE GRANULOCYTES 0.2 % (0-5); LYMPHOCYTES 32.9 % (15-50); MCHC 33.5 g/dL (31.0-37.0); MCV 92.4 fL (80.0-100.0); MEAN PLATELET VOLUME 10.5 fL (7.4-10.4); MONOCYTES 6.7 % (2-11); NEUTROPHILS 56.1 % (40-80); PLATELET COUNT 214 10x3/uL (130-400); RBC 3.97 10x6/uL (4.00-5.40); WBC 6.6 10x3/uL (4.8-10.8)
[2017-03-24 17:51] LABS: ALBUMIN 3.8 g/dL (3.4-5.0); ALKALINE PHOSPHATASE 111 U/L (46-116); ALT (SGPT) 37 U/L (10-68); BILIRUBIN - TOTAL 0.17 mg/dL (0.2-1.3); CALC OSMOLALITY 275 mosm/kg (275-300); CALCIUM 8.9 mg/dL (8.5-10.1); CARBON DIOXIDE 25.2 mmol/L (21.0-32.0); CHLORIDE - SERUM 101 mmol/L (98-107); CREATININE - SERUM 1.1 mg/dL (0.6-1.3); GLUCOSE 110 mg/dL (74-106); POTASSIUM - SERUM 3.5 mmol/L (3.5-5.1); SODIUM 137 mmol/L (136-145); UREA NITROGEN 16 mg/dL (7-18); eGFR NON AFRICAN AMERICAN 55 mL/min (90-120)
[2017-03-24 18:03] LABS: CHOLESTEROL, TOTAL 262 mg/dL (0-200); CKMB 0.9 U/L (0.0-3.6); CREATINE KINASE 108 UL (21-215); HDL CHOLESTEROL 52 mg/dL (32-96); LDL CHOLESTEROL 182 mg/dL (0-100); LDL-HDL RATIO 3.5 ratio (1.5-3.5); TRIGLYCERIDE 142 mg/dL (30-200)
[2017-03-24 18:07] LABS: TROPONIN-I < 0.017 ng/mL (0.000-0.060)
[2017-03-24] MEDS ORDERED: DUEXIS 800-26.1 EACH PO (21:52)
[2017-03-24 21:53] VITALS: BP 105/43; Ht 167.6 cm; Wt 95.4 kg
[2017-03-24] MEDS ORDERED: VALIUM5 MG PO (21:53)
[2017-03-25] VITALS: BP 94/78
[2017-03-25 04:00] VITALS: BP 88/40
--- NOTE | 2017-03-25 07:18 | NUR ---
PT LAYING FLAT IN BED SLEEPING RR EVEN AND UNLABORED. NO S/S DISTRESS NOTED. FAMILY MEMBER AT BEDSIDE. WILL CONT TO MONITOR
[2017-03-25 07:56] VITALS: BP 90/54
--- NOTE | 2017-03-25 08:06 | NUR ---
PAGEDerrick JARAMILLO FOR PT HOME MEDS TO BE RESTARTED. PT VERY UPSET ABOUT NOT GETTING HER HOME MEDS.
[2017-03-25] MEDS ORDERED: SYNTHROID112 MCG PO (08:28)
--- NOTE | 2017-03-25 08:30 | NUR ---
PT IS VERY UPSET THAT SHE IS NPO AND NOT GETTING HER HOME MEDICATIONS. PT CRYING. CALLED CLINT NASRA AND WENT OVER ALL OF PTS HOME MEDICATIONS. CLINT GAVE OK TO RESTART KLONOPIN FOR NOW. WENT IN TO GIVE PT HER MEDICATIONS AND SHE IS STILL VERY UPSET THAT HER HOME MEDS HAVE NOT ALL BEEN RESTARTED. EXPLAINED TO PT THE HOSPITAL PROCESS AND THAT THE DR NEEDS TO EVAL PT BEFORE MEDS CAN BE RESTARTED. PT IS ALSO NPO UNTIL CARDIOLOGY EVALUATES HER. PT STATES THAT SHE WANTS DR ESTEBAN TO COME AND SEE HER. I EXPLAINED TO PT THAT DR ESTEBAN IS NOT [employer] SUPERVISOR THIS WEEK AND THAT WE CAN NOT CALL DR ESTEBAN WHEN HE IS NOT [employer] SUPERVISOR FOR HOSPITAL CALLS. EXPLAINED THAT DR RIZO IS [employer] SUPERVISOR THIS WEEK AND HE WILL BE BY TODAY TO SEE HER. PT VERBALIZES UNDERSTANDING. YELLED OUT I WALKED OUT OF THE ROOM "TELL DR FINK I WANT TO BE FIRST ON THE LIST IF THEY CATH ME!".
[2017-03-25 08:32] VITALS: BP 104/69
--- NOTE | 2017-03-25 10:31 | NUR ---
CALLED TO PT ROOM PT CO PAIN STILL FROM FIBROMYALGIA. PT HAS ALREADY RECEIVED MORPHINE PER EMAR 2 HOURS AGO. NOT DUE AGAIN UNTIL 1230. EXPLAINED THIS TO PT. DAUGHTER EXCLAIMS "SO WHAT IS SHE SUPPOSED TO DO JUST SIT HERE IN PAIN?!" TOLD FAMILY AND PT THAT I HAVE ALREADY TALKED WITH THE DRS AND THEY WOULD NOT ALLOW ME TO RESTART ANY OF HER HOME MEDICATIONS. SOON THEY EVAL PT MAYBE THAT CAN REEVALUATE MEDICATIONS. PT STATES THAT IT MAY BE OVERSTIMULATION CAUSING IT AND ASKED STAFF TO CLUSTER CARE. WILL RELAY TO THE MACHINE BILLER.
[2017-03-25 12:00] VITALS: BP 124/64
--- NOTE | 2017-03-25 14:31 | NUR ---
EKG FOR 1430 DONE AND PLACED ON PT CHART.
[2017-03-25] MEDS ORDERED: ISOSORBIDE MONO30 M1 PO (15:22)
[2017-03-25 17:01] LABS: CKMB 0.7 U/L (0.0-3.6); CREATINE KINASE 68 UL (21-215)
[2017-03-25 17:02] LABS: TROPONIN-I < 0.017 ng/mL (0.000-0.060)
--- NOTE | 2017-03-25 18:00 | NUR ---
PT SITTING UP IN BED WITH DAUGHTER AT BEDSIDE DENIES NEEDS
[2017-03-25 19:00] VITALS: BP 103/48
--- NOTE | 2017-03-25 20:10 | NUR ---
DAUGHTER IN [place] ASKING WHEN HER MOTHERS MEDS WILL BE GIVEN BECAUSE HER MOTHER IS HURTING, MANUELER INFORMED THAT MEDICATIONS WILL BE GIVEN SHORTLY AND PAIN MEDS ARE NOT DUE UNTIL 9 PM.
--- NOTE | 2017-03-25 21:01 | NUR ---
HS MEDS GIVEN WITH FRESH ICE WATER, PTS 14 YEAR OLD DAUGHTER AT BED SIDE ASKING WHAT MEDICATIONS HER MOTHER IS RECIEVING, NAMED OFF EACH MEDICATIONS IT WAS SCANNED INTO THE COMPUTER AND AGAIN WHILE IT WAS BEING OPENED. MORPHINE 4 MG ALSO GIVEN FOR C/O PAIN TO LEFT SHOULDER AND ARM, RATES PAIN AT A 10 ON PAIN SCALE. PTS DAUGHTER ASKED IF I CAN PUSH THE MEDICATION SLOW, INFORMED HER THAT I PUSH ALL MEDICATIONS SLOWLY ESPECIALY NARCOTICS. PT THEN ASKED OF SHE CAN HAVE HER VALIUM AND CLONAZEPAM ALSO, I TOLD HER I WILL LOOK AND SEE WHEN THE LAST TIME IT WAS THAT SHE HAD THEM AND ASKED HER OF SHE TAKES ALL OF THESE MEDICATIONS AT HOME TOGETHER, PT REPLIED " YES, IS THAT A PROBLEM" AND PROCEEDED TO TELL ME HER MEDICAL HX. EXPAINED TO PT THAT I JUST WANTED TO BE SURE BECAUSE AT THE HOSPITAL WE SOME TIMES STAGGER MEDICATIONS DUE TO THE EFFECT THEY CAN HAVE ON A PERSONS RESPERATIONS AND VITAL SIGNS. PULLED VALIUM 5 MG TAB AND KLONOPIN 1 MG TAB AND GAVE TO PT. NO OTHER NEEDS AT THIS TIME, BED LOW, CL IN REACH.
[2017-03-25 22:28] LABS: CKMB 0.8 U/L (0.0-3.6); CREATINE KINASE 70 UL (21-215)
[2017-03-25 22:29] LABS: TROPONIN-I < 0.017 ng/mL (0.000-0.060)
--- NOTE | 2017-03-25 22:36 | NUR ---
PT'S DAUGHTER IN ROOM WITH PT, AKSED THE CHILD HER AGE AND SHE STATED SHE IS 14 YEARS OLD. EXPLAINED TO THE PT AND THE CHILD THAT IT IS THE POLICY OF THE HOSPITAL THAT CHILDREN CAN NOT STAY ALONE WITH THE PT OVER NIGHT. THE DAUGHTER CALLS HER FATHER. STATES "MY DAD IS REALLY MAD AND PROBABLY GOING TO CALL YOU AND BE MEAN". THE PT IS APOLOGETIC AND STATES SHE TOLD HIM TO JUST DROP IT. THE CHILD IS IN TEARS, CRYING BECAUSE HER FATHER IS SO ANGRY. I EXPLAINED TO THE CHILD REPEATEDLY THAT SHE HAS DONE NOTHING WRONG. THE PT STATES THAT HER SPOUSE IS A PROPELLER LAYOUT WORKER AND IS IN [place]. THE CHILD IS SAID TO BE WAITING FOR A RIDE NOW TO GO HOME WITH A FRIEND. THE CHILD STATES, "MY DAD WANTS TO KNOW YOUR NAME AND THE ADMINISTRATORS NAME". ALL NAMES GIVEN REQUESTED.
[2017-03-26] VITALS: BP 94/46
--- NOTE | 2017-03-26 02:04 | NUR ---
MORPHINE 4 MG GIVEN FOR C/O PAIN TO LEFT ARM, RATES PAIN AT AN 8 ON PAIN SCALE.
[2017-03-26] MEDS ORDERED: KLOR-CON 1010 MEQ PO (03:29)
[2017-03-26] MEDS ORDERED: MUCINEX600 MG PO (03:29)
[2017-03-26] MEDS ORDERED: FISH OIL 1,0001 CA1 PO (03:30)
[2017-03-26] MEDS ORDERED: ZIAC 5-6.25 MG1 TAB PO (03:31)
[2017-03-26] MEDS ORDERED: IMITREX100 MG PO (03:32)
[2017-03-26] MEDS ORDERED: VITAMIN D5000 UNIT PO (03:32)
[2017-03-26] MEDS ORDERED: NORVASC10 MG PO (03:33)
[2017-03-26] MEDS ORDERED: SYNTHROID112 MCG PO (03:33)
[2017-03-26] MEDS ORDERED: PROAIR HFA8.5 GM INH (03:36)
[2017-03-26 04:00] VITALS: BP 94/36
[2017-03-26 04:38] LABS: BASOPHILS 0.4 % (0-2); EOSINOPHILS 3.9 % (0-7); HEMATOCRIT 33.5 % (36.0-48.0); HEMOGLOBIN 11.3 g/dL (12-16); IMMATURE GRANULOCYTES 0.2 % (0-5); MCHC 33.7 g/dL (31.0-37.0); MEAN PLATELET VOLUME 10.2 fL (7.4-10.4); MONOCYTES 8.2 % (2-11); NEUTROPHILS 44.3 % (40-80); PLATELET COUNT 207 10x3/uL (130-400); RBC 3.64 10x6/uL (4.00-5.40); RDW 13.1 % (11.5-14.5); WBC 5.6 10x3/uL (4.8-10.8)
--- NOTE | 2017-03-26 05:03 | NUR ---
AMBULATING IN ROOM, GAIT STEADY.
[2017-03-26 05:04] LABS: CALC OSMOLALITY 271 mosm/kg (275-300); CALCIUM 9.1 mg/dL (8.5-10.1); CARBON DIOXIDE 25.6 mmol/L (21.0-32.0); CHLORIDE - SERUM 100 mmol/L (98-107); CKMB 0.7 U/L (0.0-3.6); CREATINE KINASE 69 UL (21-215); CREATININE - SERUM 1.5 mg/dL (0.6-1.3); GLUCOSE 103 mg/dL (74-106); PHOSPHOROUS 4.5 mg/dL (2.5-4.9); POTASSIUM - SERUM 4.1 mmol/L (3.5-5.1); SODIUM 134 mmol/L (136-145); TROPONIN-I < 0.017 ng/mL (0.000-0.060); UREA NITROGEN 23 mg/dL (7-18); eGFR NON AFRICAN AMERICAN 39 mL/min (90-120)
--- NOTE | 2017-03-26 07:08 | NUR ---
PT AWAKE IN BED. COMPLAINS OF PAIN ASKED FOR TORADOL AND MORPHINE. TOLD HER I WILL BRING THEM AFTER I CHECK ON MY OTHER PT NO S/S OF DISTRESS WILL CONTINUE TO MONITOR
--- NOTE | 2017-03-26 08:44 | NUR ---
INDURATION AND INFLITRATION IN RIGHT ARM IV. CALLED SALLIE D/Abigail IV MORPHINE AND START NORCO 10/325 TID PO
[2017-03-26 09:12] VITALS: BP 119/48
--- NOTE | 2017-03-26 11:45 | NUR ---
PT RESTING IN BED. DAUGHTER IN ROOM. DENIES ANY NEEDS AT THIS TIME. NO S/S OF DISTESS WILL CONTINUE TO MONITOR
[2017-03-26 12:39] VITALS: BP 127/67
[2017-03-26] MEDS ORDERED: PREDNISONE5 MG PO (15:24)
--- NOTE | 2017-03-26 15:33 | NUR ---
PT IS REFUSING TO GO HOME UNTIL COMES TO SEE HER. DR RIZO REQUESTED THAT WE PAGE DANAE. DONE
[2017-03-26 15:50] VITALS: BP 126/61
--- NOTE | 2017-03-26 16:33 | NUR ---
PT ASKING WHAT DR RIZO IS SENDING HER HOME FOR PAIN MEDICATION... PT TAKES NORCO 10 AT HOME AND FILLED THE SCRIPT ON 03/19/17. PT DOES HAVE PAIN MEDICATION TO GO HOME ON. DR FINK CAME TO SEE PT AND CLEARED HER FROM CARDIAC STANDPOINT WITH FOLLOW UP APPT. TO ALSO HAVE FOLLOW UP APPT WITH DR ESTEBAN WELL.
--- NOTE | 2017-03-26 16:38 | NUR ---
PT HAS BEEN REFUSING BREATHING TREATMENTS
--- NOTE | 2017-03-26 18:30 | NUR ---
DISCHARGE INSTUCTIONS AND DISCHARGE TEACHINGS PROVIDED. PT VERBILIZED UNDERSTANDING AND DENIES ANY QUESTIONS OR CONCERNS. TELEMETRY REMOVED AND RETURNED TO SUPERVISOR ROVING. PT IN ROOM WITH AND DAUGHTER GATHERING BELONGINGS AND TRANSPORTED VIA WHEELCHAIR TO CAR OUT FRONT SCRIPT FOR PREDNISONE PROVIDED
--- NOTE | 2017-03-28 15:02 | CN ---
PATIENT NAME:GEORGIA ODONNELL MEDICAL RECORD: [id number] : 65 LOCATION:D. D.2123 ADMIT DATE: 03/24/17 ACCOUNT: [id number] CONSULTING PHYSICIAN: LOUANN GRULLON MD REFERRING PHYSICIAN: FLORENCIA RIZO MD DATE OF CONSULTATION: 03/25/2017 ADMITTING DIAGNOSES: 1. Chest pain. 2. Coronary artery disease. 3. Previous percutaneous transluminal coronary angioplasty stent. HISTORY OF PRESENT ILLNESS: Mrs. Odonnell presents with chest pain. This is not like her previous pain. She was in a hammock, she twisted, felt a pop in her left anterior chest and has had pain radiating down her left arm since. She does have a history of coronary artery disease and recent PTCA stent of the LAD. I have reviewed the cardiac catheterization film. There are really no other blockages other than the LAD lesion which shows an excellent result with this. Her troponin is normal. EKG is with no change. PHYSICAL EXAMINATION: GENERAL APPEARANCE: Well-nourished, well-developed, appears stated age. Level of distress, comfortable. PSYCHIATRIC: Mental status, alert, normal affect. Orientation, oriented to time, place and person. EYES: Lids and conjunctiva, noninjected. No discharge, no pallor. ENT: Lips, teeth, gums, normal dentition. Oropharynx, no cyanosis, no pallor. NECK: Carotid arteries, bilateral normal upstroke, no bruits, no thrills. JUGULAR VEINS: No jugular venous pressure or distention. CERVICAL LYMPH NODES: Nontender, nonenlarged. THYROID: Not enlarged. Nontender. No nodules. LUNGS: Respiratory effort, unlabored. CHEST: Normal curvature. No thoracic deformity. No chest wall tenderness. Percussion, resonant. Auscultation, clear. No wheezes, no rales, no rhonchi. CARDIOVASCULAR: Precordial exam, nondisplaced. No heaves or pericardial thrills. Rate and rhythm, regular. Heart sounds, normal S1, normal S2. No S3, no gallop, no rub. Systolic murmur, not heard. Diastolic murmur, not heard. EXTREMITIES: No cyanosis, no edema. Peripheral pulses, full and equal in all extremities, except as noted. No bruits appreciated. ABDOMEN: Soft, nondistended. Normal aorta. No bruit. Nontender. No masses. Liver, nontender, no hepatomegaly. Spleen, nontender, no splenomegaly. MUSCULOSKELETAL: No joint tenderness. No joint swelling. No erythema. NEUROLOGICAL: Normal gait, normal strength, normal tone. SKIN: Warm and dry. REVIEW OF SYSTEMS: The patient reports easy bruising but reports no swollen glands. The patient reports no fever, no night sweats, no significant weight gain, no significant weight loss. No significant exercise tolerance. The patient reports no dry eyes, no irritation, no vision change. Patient reports no difficulty hearing and no ear pain. Patient reports no frequent nose bleeds or nose and sinus problems. Patient reports on arm pain on exertion. No shortness of breath while lying down. No history of heart murmur. Patient reports no cough, no wheezing or coughing up blood. Patient reports no abdominal pain, no vomiting. Normal appetite. No diarrhea and not vomiting blood. No nausea and no constipation. Patient reports no incontinence. No CONSULT REPORT [id number] GEORGIA ODONNELL difficulty urinating. No hematuria. No increased frequency. Patient reports no muscle aches. No weakness, no arthralgias, no back pain. No swelling of the extremities. Patient reports no abnormal mole, no jaundice, no rashes. Reports no loss of consciousness. No weakness and no numbness. No seizures, dizziness, or headaches. The patient reports no depression, no sleep disturbance, feeling safe in a relationship and no alcohol abuse. Patient reports on fatigue. Reports no runny nose or sinus pressure. No itching, no hives, and no frequent sneezing. OVERALL IMPRESSION: Chest pain. Most likely, this is musculoskeletal. At this point, no other cardiac workup or treatment is necessary. TRANSINT:[id number] Voice Confirmation ID: [id number] DOCUMENT ID: [id number] LOUANN GRULLON MD at 1502 CC: [id number] DICTATION DATE: 03/25/171534 GRAIN MILL WORKER: 03/25/172327 DIS IN 03/26/17 [place] [id number] [place] [id number]
== END 2017-03-26 18:53 | disposition home or self-care (01) ==
LOC: D.ER 16:44 → D.M2 20:23 → OBSVTIME 20:23 → D.M2 20:23
PROVIDERS: Emergency Medicine; ADMIT Family Medicine
DX: M54.12 Radiculopathy, cervical region (principal); R07.89 Other chest pain; M25.512 Pain in left shoulder; I10 Essential (primary) hypertension; I25.10 Atherosclerotic heart disease of native coronary artery without angina pectoris; Z95.5 Presence of coronary angioplasty implant and graft; F41.9 Anxiety disorder, unspecified; M79.7 Fibromyalgia; Z72.0 Tobacco use

== ENCOUNTER 2017-04-12 13:19 | Emergency (ER) | payer BC ==
[2017-03-24 21:53] VITALS: BMI 34.7
[~2017-04-12 13:19] MED LIST changes: +KLOR-CON 1010 MEQ PO; +PREDNISONE5 MG PO; +SYNTHROID112 MCG PO; +VALIUM5 MG PO; +VITAMIN D5000 UNIT PO
== END 2017-04-12 16:56 | disposition home or self-care (01) ==
LOC: D.ER 13:19
DX: S00.03XA Contusion of scalp, initial encounter (principal); W19.XXXA Unspecified fall, initial encounter; Y93.89 Activity, other specified; Y92.89 Other specified places as the place of occurrence of the external cause; M54.9 Dorsalgia, unspecified

== ENCOUNTER → 2017-06-02 15:13 | Day surgery (SDC) | payer BC ==
[~2017-06-02] VITALS: Ht 167.6 cm; Wt 96.8 kg
--- NOTE | ~2017-06-02 | OP ---
PATIENT NAME: GEORGIA ODONNELL MEDICAL RECORD: [id number] :65 LOCATION:[facility] ADMISSION DATE: SURGEON: HENRY GEORGE DO DATE OF OPERATION: 06/02/2017 PROCEDURE: EGD with biopsies. INDICATIONS FOR PROCEDURE: Heartburn, dysphagia, nausea, and abnormal weight loss. SCOPE: GoldenSUN video gastroscope. MEDICATIONS: Propofol 70 mg IV and fentanyl 100 mg IV per anesthesia. ESTIMATED BLOOD LOSS: Minimal. COMPLICATIONS: None. FINDINGS: Informed consent was given. The patient was made comfortable with the above medication. After reaching an adequate level of sedation by slow IV push, the patient was placed on her left side. The endoscope was then advanced under direct visualization through the mouth to the second portion of the duodenum. The upper, middle, and lower thirds of the esophagus appeared normal. At the GE junction, there was evidence of mild LA class B reflux-induced esophagitis. The endoscope was advanced beyond the GE junction into the stomach and retroflexed to view the cardia, where a small sliding hiatal hernia was present. The fundus and body of the stomach appeared normal. In the antrum and prepyloric region, there was some erythema and granularity consistent with possible gastritis. Random biopsies were taken to submit for histology and to rule out H. pylori. The endoscope was advanced beyond the pylorus into the duodenum where the bulb and second portion of the duodenum appeared normal. The scope was then withdrawn from the patient. The patient tolerated the procedure well and there were no complications. IMPRESSION: 1. LA class B reflux-induced esophagitis. 2. Small sliding hiatal hernia. 3. Possible gastritis, biopsies pending. PLAN AND RECOMMENDATIONS: 1. Discharge home when recovery parameters are met. 2. Follow up biopsy specimen results. 3. GERD diet and reflux precautions. 4. Continue omeprazole 40 mg daily. 5. Add Zantac 150 mg p.o. q.h.s. 6. Could consider surgical referral for antireflux surgery if symptoms uncontrolled of medications. 7. Follow up in GI clinic as needed and with primary care physician as scheduled. TRANSINT:[id number] Voice Confirmation ID: [id number] DOCUMENT ID: [id number] OPERATIVE REPORT [id number] GEORGIA ODONNELLHENRY DELONG DO CC: [id number] DICTATION DATE: 06/02/17 1349 RESIDENTIAL TEAM LEADER: 06/02/171917 [facility] [address] [place] [id number]
[2017-06-02 11:26] LABS: BASOPHILS 0.3 % (0-2); EOSINOPHILS 2.3 % (0-7); HEMOGLOBIN 12.8 g/dL (12-16); IMMATURE GRANULOCYTES 0.1 % (0-5); LYMPHOCYTES 30.3 % (15-50); MCH 31.4 pg (26.0-34.0); MCHC 34.6 g/dL (31.0-37.0); MCV 90.7 fL (80.0-100.0); MEAN PLATELET VOLUME 10.8 fL (7.4-10.4); MONOCYTES 8.4 % (2-11); NEUTROPHILS 58.6 % (40-80); PLATELET COUNT 194 10x3/uL (130-400); RBC 4.08 10x6/uL (4.00-5.40); RDW 12.9 % (11.5-14.5); WBC 7.3 10x3/uL (4.8-10.8)
[2017-06-02 11:36] LABS: CALCIUM 9.1 mg/dL (8.5-10.1); CARBON DIOXIDE 26.1 mmol/L (21.0-32.0); CREATININE - SERUM 1.2 mg/dL (0.6-1.3); POTASSIUM - SERUM 4.1 mmol/L (3.5-5.1)
[2017-06-02 11:39] VITALS: BP 119/59; Ht 167.6 cm; Wt 96.8 kg
--- NOTE | 2017-06-02 14:55 | NUR ---
8326 DISCHARGE INSTRUCTIONS COMPLETE. PRESCRIPTION FOR ZANTAC GIVEN. SHE HAS NO QUESTIONS OR CONCERNS. ESCORTED OUT BY VOLUNTEER.
[~2017-06-02 15:13] MED LIST changes: +VALIUM10 MG PO
== END | disposition home or self-care (01) ==
LOC: D.OPS 05-30 14:00
PROVIDERS: Anesthesiology
DX: R13.10 Dysphagia, unspecified (principal); R11.0 Nausea; R12 Heartburn; K44.9 Diaphragmatic hernia without obstruction or gangrene; F17.200 Nicotine dependence, unspecified, uncomplicated; I10 Essential (primary) hypertension; E03.9 Hypothyroidism, unspecified; J44.9 Chronic obstructive pulmonary disease, unspecified; Z01.812 Encounter for preprocedural laboratory examination

== ENCOUNTER → 2017-06-29 13:37 | Outpatient (CLI) | payer BC ==
[2017-06-02 11:39] VITALS: BMI 34.4
== END | disposition home or self-care (01) ==
LOC: D.MRI 13:37
DX: M25.561 Pain in right knee (principal)

== ENCOUNTER 2017-07-04 10:02 | Day surgery (SDC) | payer BC ==
[2017-07-04 10:56] VITALS: BP 100/55; BMI 35.3
[2017-07-04 11:28] LABS: HEMATOCRIT 36.2 % (36.0-48.0); HEMOGLOBIN 12.2 g/dL (12-16); MCH 30.7 pg (26.0-34.0); MCHC 33.7 g/dL (31.0-37.0); MCV 91.2 fL (80.0-100.0); RBC 3.97 10x6/uL (4.00-5.40); WBC 5.3 10x3/uL (4.8-10.8)
--- NOTE | 2017-07-04 14:20 | NUR ---
IV D/C'D CATH INTACT. PT UP TO BR, VOIDED AND PASSED GAS.
--- NOTE | 2017-07-04 14:44 | NUR ---
D/C'D HOME VIA W/C TO PRIVATE CAR. ALERT.
--- NOTE | 2017-07-05 07:47 | OP ---
PATIENT NAME: GEORGIA ODONNELL MEDICAL RECORD: [id number] :65 LOCATION:[facility] ADMISSION DATE: SURGEON: HENRY GEORGE DO DATE OF OPERATION: 07/04/2017 PROCEDURE: Colonoscopy with polypectomy. INDICATION FOR PROCEDURE: Lower abdominal pain, constipation, and abnormal weight loss. SCOPE: Olympus video pediatric colonoscope. MEDICATIONS: Propofol 250 mg IV per anesthesia. WITHDRAWAL TIME: 10 minutes. ESTIMATED BLOOD LOSS: Minimal. COMPLICATIONS: None. FINDINGS: Informed consent was given. The patient was made comfortable with the above medication. After reaching an adequate level of sedation by slow IV push, the patient was placed on her left side. A digital rectal examination was performed and was normal. The endoscope was then advanced under direct visualization through the rectum to the terminal ileum. The scope was slowly withdrawn and the mucosa was carefully examined. The prep quality was excellent. There was a single polyp visualized on this examination. It was benign appearing and sessile and located in the transverse colon. It measured approximately 5 mm in diameter. It was removed using hot snare in one piece and completely retrieved. There was evidence of very mild left-sided diverticulosis without diverticulitis. Retroflexion was performed in the rectum with a normal-appearing rectal wall. The endoscope was then withdrawn from the patient. The patient tolerated the procedure well and there were no complications. IMPRESSION: 1. A single transverse polyp removed using hot snare. 2. Mild left-sided diverticulosis. PLAN AND RECOMMENDATIONS: 1. Discharge home when recovery parameters are met. 2. Followup biopsy specimen results. 3. High-fiber diet. 4. Continue current medications. 5. Supplement diet with fiber, at least 2 tablespoons daily, to facilitate more regular bowel movements. I instructed the patient that if the fiber is not consistently improving her bowels, we may add a capsule such as Linzess or Amitiza or continue use with MiraLAX as needed. Her one concern regarding these medications is that they cause loose stools. 6. Follow up in GI clinic as needed. 7. Recall colonoscopy in 5 years based on likely tubular adenomatous polyp removal. TRANSINT:[id number] Voice Confirmation ID: [id number] DOCUMENT ID: [id number] OPERATIVE REPORT [id number] GEORGIA ODONNELL HENRY GEORGE DO at 0792 CC: [id number] DICTATION DATE: 07/04/17 1333 CREDIT RATING INSPECTOR: 07/04/17 1618 [facility] [place] 07/04/17 [place] [id number] [place] [id number]
[2017-08-08] MEDS ORDERED: ZEBETA5 MG PO (12:36)
[2017-08-08] MEDS ORDERED: ZANTAC150 MG PO (12:44)
[2017-08-08] MEDS ORDERED: ROBAXIN500 MG PO (12:44)
== END 2017-07-04 14:45 | disposition home or self-care (01) ==
LOC: D.OPS 10:02
PROVIDERS: Anesthesiology
DX: R10.30 Lower abdominal pain, unspecified (principal); K59.00 Constipation, unspecified; R63.4 Abnormal weight loss; R13.10 Dysphagia, unspecified; F17.200 Nicotine dependence, unspecified, uncomplicated; J45.909 Unspecified asthma, uncomplicated; I25.10 Atherosclerotic heart disease of native coronary artery without angina pectoris; I10 Essential (primary) hypertension; E03.9 Hypothyroidism, unspecified; K21.9 Gastro-esophageal reflux disease without esophagitis; K63.5 Polyp of colon; K57.30 Diverticulosis of large intestine without perforation or abscess without bleeding; Z01.812 Encounter for preprocedural laboratory examination

== ENCOUNTER → 2017-07-18 18:18 | Outpatient (CLI) | payer BC ==
[2017-07-04 10:56] VITALS: BMI 35.3
[~2017-07-18 18:18] MED LIST changes: +ZANTAC150 MG PO; +ZEBETA5 MG PO
== END | disposition home or self-care (01) ==
LOC: D.LABREF 18:18
DX: N39.0 Urinary tract infection, site not specified (principal)

== ENCOUNTER → 2017-07-26 13:36 | Outpatient (CLI) | payer BC ==
[2017-07-04 10:56] VITALS: BMI 35.3
== END | disposition home or self-care (01) ==
LOC: D.MRI 13:36
DX: M25.562 Pain in left knee (principal)

== ENCOUNTER 2017-07-31 18:05 | Emergency (ER) | payer BC ==
[~2017-07-31 18:05] MED LIST changes: -ZANTAC150 MG PO; -ZEBETA5 MG PO
[2017-08-08] MEDS ORDERED: ZEBETA5 MG PO (12:36)
[2017-08-08] MEDS ORDERED: ZANTAC150 MG PO (12:44)
[2017-08-08] MEDS ORDERED: ROBAXIN500 MG PO (12:44)
== END 2017-07-31 21:30 | disposition home or self-care (01) ==
LOC: D.ER 18:05
DX: R51 Headache (principal); Z98.890 Other specified postprocedural states; R93.8 Abnormal findings on diagnostic imaging of other specified body structures

== ENCOUNTER 2017-08-01 14:17 | Emergency (ER) | payer BC ==
[2017-08-01 20:28] LABS: ALBUMIN 3.5 g/dL (3.4-5.0); ANION GAP 14.3 mmol/L (8-16); BILIRUBIN - TOTAL 0.22 mg/dL (0.2-1.3); CALCIUM 9.2 mg/dL (8.5-10.1); CARBON DIOXIDE 25.8 mmol/L (21.0-32.0); CREATININE - SERUM 1.4 mg/dL (0.6-1.3); POTASSIUM - SERUM 4.1 mmol/L (3.5-5.1); PROTEIN - SERUM 7.1 g/dL (6.4-8.2)
[2017-08-01 20:56] LABS: BASOPHILS 0.4 % (0-2); EOSINOPHILS 2.3 % (0-7); HEMATOCRIT 37.9 % (36.0-48.0); HEMOGLOBIN 12.4 g/dL (12-16); IMMATURE GRANULOCYTES 0.2 % (0-5); LYMPHOCYTES 38.4 % (15-50); MCH 30.6 pg (26.0-34.0); MCHC 32.7 g/dL (31.0-37.0); MCV 93.6 fL (80.0-100.0); MEAN PLATELET VOLUME 10.3 fL (7.4-10.4); MONOCYTES 7.8 % (2-11); NEUTROPHILS 50.9 % (40-80); PLATELET COUNT 210 10x3/uL (130-400); RBC 4.05 10x6/uL (4.00-5.40); WBC 5.3 10x3/uL (4.8-10.8)
[2017-08-08] MEDS ORDERED: ZEBETA5 MG PO (12:36)
[2017-08-08] MEDS ORDERED: ZANTAC150 MG PO (12:44)
[2017-08-08] MEDS ORDERED: ROBAXIN500 MG PO (12:44)
== END 2017-08-01 22:34 | disposition home or self-care (01) ==
LOC: D.ER 14:17
PROVIDERS: Nurse Practitioner Family
DX: R51 Headache (principal); I10 Essential (primary) hypertension

== ENCOUNTER 2017-08-09 05:31 | Day surgery (SDC) | payer BC ==
[2017-08-08 13:23] LABS: HEMATOCRIT 35.2 % (36.0-48.0); HEMOGLOBIN 11.7 g/dL (12-16); MCHC 33.2 g/dL (31.0-37.0); MCV 93.4 fL (80.0-100.0); MEAN PLATELET VOLUME 10.4 fL (7.4-10.4); RBC 3.77 10x6/uL (4.00-5.40); RDW 13.1 % (11.5-14.5); WBC 4.9 10x3/uL (4.8-10.8)
[2017-08-08 13:59] LABS: ANION GAP 15.2 mmol/L (8-16); CARBON DIOXIDE 23.1 mmol/L (21.0-32.0); CREATININE - SERUM 1.2 mg/dL (0.6-1.3); POTASSIUM - SERUM 4.3 mmol/L (3.5-5.1)
[~2017-08-09 05:31] MED LIST changes: +ZANTAC150 MG PO; +ZEBETA5 MG PO
[2017-08-09 13:46] VITALS: BP 89/45; BMI 32.6
[2017-08-09] MEDS ORDERED: HYDROCODONE-APA1 TAB PO (19:20)
--- NOTE | 2017-08-09 20:18 | NUR ---
REC'D PT FROM SURGERY WITH FAMILY AT BEDSIDE. NO VISIBLE SIGNS OF DISTRESS. BED IN LOWEST POSITION AND CALL LIGHT WITHIN REACH. ENCOURAGED THE PT TO CALL IF SHE HAS NEEDS.
--- NOTE | 2017-08-09 23:07 | NUR ---
SPOKE WITH DR. DICKSON IN REGARDS TO PT BEING UNABLE TO URINATE. EXPLAINED THE PT IS EATING AND DRINKING, HAS NO NAUSEA OR VOMITING, AND DOES NOT HAVE THE URGE TO URINATE. DR. DICKSON STATED "WHATEVER THE SHE WANTS TO DO IS OK"
--- NOTE | 2017-08-10 07:37 | OP ---
PATIENT NAME: GEORGIA ODONNELL MEDICAL RECORD: [id number] :65 LOCATION:D.OPS ADMISSION DATE: SURGEON: ATUL DICKSON DO DATE OF OPERATION: 08/09/2017 PROCEDURE PERFORMED: Left knee arthroscopy with partial medial meniscectomy. PREOPERATIVE DIAGNOSIS: Left knee medial meniscal tear. POSTOPERATIVE DIAGNOSIS: Left knee medial meniscal tear. INDICATIONS: The patient is a 52-year-old female, who presented to my office with left knee pain that she said was popping, catching and locking, has hurt her along the medial joint line. She did get an MRI, which showed a medial meniscal tear and she said she was tired to deal with them and wanted something done surgically. She is told we can do a knee arthroscopy and trim her down meniscus. She verbally consented to this procedure. SURGEON: Atul Dickson DO COMPLICATIONS: None. BLOOD LOSS: Minimal. DESCRIPTION OF THE PROCEDURE: The patient was taken to the operative suite, laid in the supine position, given general anesthetic and 2 grams Ancef preoperatively, the left lower extremity was prepped and draped in sterile fashion and a timeout was performed and everyone was aggreeance to correct side and site and patient. Once this was done, the left knee arthroscopy began. The knee was flexed and the lateral portal was established with an 11-blade scalpel and then the trocar was entered into the knee and the knee was extended and brought into the suprapatellar pouch. The scope was entered into the knee and the suprapatellar pouch was inspected as well as the back of patella. No chondromalacia was seen. The lateral gutter of the knee was inspected as well and no loose bodies were seen in the lateral gutter. The medial gutter was then reviewed and again no loose bodies were seen there. The knee was then flexed and the camera dropped into the medial joint line and medial compartment. Once this was done, the medial portal was established. At first, we injected 5mL of 0.5% Marcaine in this proposed site and then an 18-gauge spinal needle was used to get the placement of the portal and then it was removed and the 11 blade scalpel was used to establish a vertical portal. Once this was done, the trocar was entered and ensured it was in good position and then a probe was entered and the medial meniscus was probed. At the mid portion of the medial meniscus, there was a tear seen somewhat in the periphery and once this was noted and an upbiter was entered into the knee and the meniscus was trimmed back to a stable position where it did not sublux into the joint through the tear and then a shaver was used to remove all loose bodies and to get the meniscus back to a stable point. Once this was done, the scope was taken into the notch and the probe was used to probe the ACL. ACL was seen to be in good position and taut. The probe was then parked into the lateral compartment of the knee with finger forward and the scope entered into the lateral portal. The lateral meniscus was probed at that time and no tears were seen. There is no chondromalacia either seen in any parts of the knee. Once this was done, the knee was brought into extension and OPERATIVE REPORT [id number] GEORGIA ODONNELL the patellofemoral and trochlea were inspected and no chondromalacia was seen. Patella seemed to ride well in the trochlea. After that, the excess water was suctioned out through the scope trocar and water was turned off and portal sites were closed with 4-0 Monocryl in inverted interrupted fashion. Then, Adaptic, 4 x 4s, ABDs, Webril, and Nilesh wrap were placed over the knee and JOSE hose stocking up to the knee. Once this was done, the patient was awakened and taken to recovery in stable condition. Blood loss was minimal. TRANSINT:[id number] Voice Confirmation ID: [id number] DOCUMENT ID: [id number] ATUL DICKSON DO at 0737 CC: [id number] DICTATION DATE: 08/09/171918 LAW INSTRUCTOR: 08/09/17 2322 [facility] 08/10/17 [facility] [address] [place] [address]
== END 2017-08-10 00:05 | disposition home or self-care (01) ==
LOC: D.OPS 05:31 → D.MS 05:31 → D.PAN 12:30 → D.OPS 12:30 → D.MS 19:43 → D.OPS 08-10 00:05
PROVIDERS: Anesthesiology
DX: S83.242A Other tear of medial meniscus, current injury, left knee, initial encounter (principal); F17.200 Nicotine dependence, unspecified, uncomplicated; I25.10 Atherosclerotic heart disease of native coronary artery without angina pectoris; I10 Essential (primary) hypertension; K21.9 Gastro-esophageal reflux disease without esophagitis; J44.9 Chronic obstructive pulmonary disease, unspecified; Z01.812 Encounter for preprocedural laboratory examination

== ENCOUNTER 2017-08-16 06:00 | Inpatient (IN) | payer BC ==
--- NOTE | 2017-08-10 00:05 | NUR ---
PATIENT WAS ABLE TO EAT AND DRINK WITH NO NAUSEA/VOMITING. VINH SINHA TRANSFERED PATIENT TO ER DOORS VIA WHEELCHAIR.
[2017-08-15 14:07] LABS: HEMATOCRIT 35.9 % (36.0-48.0); MCH 31.3 pg (26.0-34.0); MCHC 33.4 g/dL (31.0-37.0); MCV 93.5 fL (80.0-100.0); MEAN PLATELET VOLUME 10.6 fL (7.4-10.4); RBC 3.84 10x6/uL (4.00-5.40); RDW 13.3 % (11.5-14.5); WBC 5.9 10x3/uL (4.8-10.8)
[2017-08-15 14:11] LABS: ANION GAP 11.7 mmol/L (8-16); CARBON DIOXIDE 28.6 mmol/L (21.0-32.0); POTASSIUM - SERUM 4.3 mmol/L (3.5-5.1)
[2017-08-16] VITALS (18 sets, daily range): BP systolic 89–119; BP diastolic 47–63; BMI 31.7; BMI 32.9
[~2017-08-16] VITALS: Ht 167.6 cm; Wt 91.8 kg
--- NOTE | 2017-08-16 10:25 | NUR ---
PT ARRIVED BY BED FROM RECOVERY. SWITCHED OVER TO ICU MONITORS. ASSESSMENT COMPLETED. PT DENIES PAIN AT THIS TIME. SOFT COLLAR AT BEDSIDE. LEFT WRIST PIV WITH NS AT KVO. PT ON 2LNC. NO S/S OF RESP DISTRESS NOTED. PT EASILY AROUSED FROM SLEEP, BUT DOES DOZE WHILE SPEAKING TO HER. CALL LIGHT WITHIN REACH. ORIENTED TO ROOM.
--- NOTE | 2017-08-16 10:46 | NUR ---
FAMILY AT BEDSIDE. UPDATED ON PT'S STATUS.
--- NOTE | 2017-08-16 13:18 | NUR ---
Spoke with Dr Wahl about restarting home medications. Reviewed list, ok to restart everything but Brilinta and Valium at this time.
--- NOTE | 2017-08-16 13:27 | NUR ---
PT UP TO RESTROOM. VOIDED WITHOUT DIFFICULTY. AMBULATED WITH ASSIST. PT RECENTLY HAD LEFT KNEE SURGERY AND HAS IT WRAPPED WITH AN KATELYN BANDAGE.
--- NOTE | 2017-08-16 13:30 | NUR ---
PT REPORT REC'D FROM ERNESTO HERMAN RN, PT CARE ASSUMED. PT RESTING WITH EYES CLOSED, VSS, BED ALARM ACTIVE, BED LOCKED IN LOWEST POSITION, CALL LIGHT IN REACH, WILL CONTINUE TO MONITOR PT.
--- NOTE | 2017-08-16 13:50 | NUR ---
REPORT GIVEN TO ANN MARIE SPENCER RN
--- NOTE | 2017-08-16 15:00 | NUR ---
PT SITTING UP IN BED, RATES PAIN "2/10". REASSESSMENT COMPLETED, SEE FLOW SHEET, ROOM FREE OF CLUTTER, CALL LIGHT IN REACH, BED ALARM ACTIVE, WILL CONTINUE TO MONITOR PT.
--- NOTE | 2017-08-16 15:30 | NUR ---
TRANSFERRED PT FROM BED TO BATHROOM, PT VOIDED 250ML YELLOW URINE, TRANSFERRED BACK TO CHAIR, WILL CONTINUE TO MONITOR PT.
--- NOTE | 2017-08-16 16:59 | NUR ---
TRANSFERRED PT FROM BED TO BATHROOM, PT VOIDED 250 ML YELLOW URINE, TRANSFERRED BACK TO BED, PT TOLERATED WELL, WILL CONTINUE TO MONITOR PT.
--- NOTE | 2017-08-16 18:17 | NUR ---
PT FAMILY AT THE BEDSIDE, ALL QUESTIONS ANSWERED, VSS, WILL CONTINUE TO MONITOR PT.
--- NOTE | 2017-08-16 19:30 | NUR ---
REPORT RECEIVED AND CARE ASSUMED. INITIAL SHIFT ASSESSMENT COMPLETED SEE FLOWSHEET. PT IS LYING IN BED AND DISCUSSED HER CHRONIC C/O PAIN. SHE STATES HER KNEES, NECK, BACK AND JOINTS HURT ALL THE TIME. PT DOES NOT C/O ACUTE PAIN ASSOCIATED WITH HER SURGERY. IVF AND DRESSING DATED AND LABELED. PT BEING MONITORED PER STANDARD CVICU PROTOCOL WITH ALL ALARMS SET AND VERIFIED. BED IN LOW POSITION AND CALL LIGHT IN REACH.
--- NOTE | 2017-08-16 20:14 | NUR ---
MEDS GIVEN DOCUMENTED ON MAR, PT C/O PAIN IN NECK, BACK AND KNEES. MEDS GIVEN ORDERED. HS SNACK PROVIDED
--- NOTE | 2017-08-16 21:00 | NUR ---
CALL PLACED TO DR. MEDINA D/T PT CONCERN ABOUT HOME RESPIRATORY MEDS. PT IS NOT IN DISTRESS AT THIS TIME. NEW ORDERS RECEIVED AND NOTED AND DISCUSSED WITH KRYSTIAN CORTESICIST. RT NOTIFIED OF NEW ORDERS
--- NOTE | 2017-08-16 23:00 | NUR ---
SHIFT REASSESSMENT COMPLETED SEE FLOWSHEET, PT DID NOT HAVE ANY VISITORS THIS SHIFT. PT HAS USED CALL LIGHT TO REQUEST HELP AND FOR NEEDS. HS SNACK PROVIDED X 2. PT PERFORMED OWN HS HYGIENE WITH MINIMAL SET UP ASSIST. PT ABLE TO AMBULATE ALONE WITH STAND BY ASSIST ONCE SHE GETS STARTED. PT REPORTS SHE RECENTLY HAD KNE SURGERY AND IS WEARING A WRAP TO LEG/KNEE. PT NOTED TO HAVE SLIGHT BALANCE PROBLEMS R/T WEAKNESS/PAIN ETC IN LEG.
[2017-08-17] VITALS (11 sets, daily range): BP systolic 109–137; BP diastolic 52–63; Ht 167.6 cm; Wt 91.8 kg
--- NOTE | 2017-08-17 00:24 | NUR ---
PT C/O PAIN IN HER NECK. IS WEARING SOFT CERVICAL COLLAR WHILE LYING IN BED. DID DISCUSS WITH PT IT IS ORDERED PRN AND WHEN OOB. REMOVED FOR NOW AND MEDS GIVEN ORDERED AND DOCUMENTED ON MAR
--- NOTE | 2017-08-17 01:00 | NUR ---
PT REPORTS FEELING MUCH BETTER REQUESTING ICE CREAM FOR SNACKING
--- NOTE | 2017-08-17 02:40 | NUR ---
ASSISTED BACK TO BED FROM BR. VOIDED 1000 ML CLEAR, YELLOW URINE. ADMIN PRN NORCO FOR C/O NECK AND KNEE PAIN. ALARMS ON AND C/L IN REACH.
--- NOTE | 2017-08-17 03:16 | NUR ---
SHIFT REASSESSMENT COMPLETED. PT HAS BEEN SLEEPING OFF AND ON THIS SHIFT. FREQUENTLY C/O PAIN WHICH SHE STATES IS A CHRONIC ISSUE WITH HER. MEDICATIONS GIVEN DOCUMENTED ON MAR AND AFTER ADMINSTRATION PT HAS BEEN SLEEPING FOR A TIME EACH TIME.
--- NOTE | 2017-08-17 04:00 | NUR ---
PT C/O BACK MUSCLE SPASMS. MEDS GIVEN DOCUMENTED ON MAR
--- NOTE | 2017-08-17 06:00 | NUR ---
NEURO CHECKS WNL THROUGHOUT SHIFT. DRESSING TO RIGHT NECK INTACT NO CHANGE. NEEDS MET
--- NOTE | 2017-08-17 07:00 | NUR ---
PT REPORT REC'D, PT CARE ASSUMED. PT AAOX4 SITTING UP IN BED. PT RATES PAIN "8/10", PAIN MEDICATION TO BE GIVEN. RIGHT NECK INCISION, DRESSING CDI. PT UP TO BATHROOM WITH ASSISTANCE. LEFT WRIST PIV, NS INFUSING KVO, NO REDNESS OR SIGNS OF INFECTION. SHIFT ASSESSMENT COMPLETED, SEE FLOW SHEET. ROOM FREE OF CLUTTER, CALL LIGHT IN REACH, BED ALARM ACTIVE, WILL CONTINUE TO MONITOR PT.
--- NOTE | 2017-08-17 07:15 | NUR ---
ASSISTED PT FROM BED TO BATHROOM, PT VOIDED 650 CLEAR YELLOW URINE, WILL CONTINUE TO MONITOR PT.
--- NOTE | 2017-08-17 08:50 | NUR ---
PT REQUESTING FOR VALIUM'S FROM HOME TO BE RESTARTED, SPOKE WITH DR. MEDINA, ORDERS REC'D.
--- NOTE | 2017-08-17 09:20 | NUR ---
PT FAMILY AT THE BEDSIDE, ALL QUESTIONS ANSWERED, VSS, WILL CONTINUE TO MONITOR PT.
--- NOTE | 2017-08-17 10:15 | NUR ---
DR. MEDINA AT THE BEDSIDE, ALL QUESTIONS ANSWERED, VSS, WILL CONTINUE TO MONITOR PT.
--- NOTE | 2017-08-17 10:25 | OP ---
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 PROCEDURES: Anterior cervical discectomy and fusion with Zavation of anterior cervical plate and screws, PEEK interbody cage, ViaCell bone stem cells, removal of osteophytes, foraminotomy bilaterally. DESCRIPTION AND TECHNIQUE: After induction of general endotracheal anesthesia, the patient was positioned supine on the operating table. Neck was prepped and draped in usual sterile fashion. Fluoroscopic x-ray and marker localized the C6-C7 interspace. A transverse skin incision was carried out from the midline to the sternocleidomastoid muscle. The platysma was divided with #15 blade. Using blunt and sharp dissection with Metzenbaum scissors, I proceeded in an avascular plane medial to the carotid sheath. The C6-C7 interspace was identified with fluoroscopic x-ray and a spinal needle. The osteophytes were removed anteriorly with Adson rongeurs. Self-retaining retractors were placed deep to the longus colli muscles. The [place] pins were placed in the C6 and C7 vertebral bodies. Disk space was incised under distraction. Disk material was removed with pituitary rongeurs and curettes. Osteophytes were drilled away posteriorly with Midas-Easton drill under microscopic illumination. The posterior longitudinal ligament was removed with Cloward rongeurs. A PEEK interbody cage was placed in the disk space under distraction. Prior to this, it was filled with bone stem cell allograft. A Zavation midline plate and screws was used to span the C6-C7 interspace. Self-drilling screws were placed through the holes and plate. Locking cams were tightened down over the screw heads. Meticulous hemostasis was maintained throughout the wound. The wound was irrigated with copious amounts of Ancef irrigant solution. The platysma and subdermal layer were closed with interrupted 3-0 Vicryl suture. The skin was reapproximated with Steri-Strips and benzoin. A sterile dressing was applied to the wound. The patient was awakened in good condition and taken to recovery. All counts were reported as correct. Estimated blood loss was minimal. TRANSINT:[id number] Voice Confirmation ID: [id number] DOCUMENT ID: [id number] KOFI MEDINA MD at 1025 CC: [id number] DICTATION DATE: 08/16/17920 FARM ASSISTANT: 08/16/17 1055 ADM [place] [id number] [place] [id number]
--- NOTE | 2017-08-17 10:30 | NUR ---
SPOKE WITH ABENA FROM DR. MEDINA'S OFFICE, PT HAS F/U APPT 09/15/17 AT 1035
--- NOTE | 2017-08-17 11:00 | NUR ---
PT SITTING UP IN BED, EATING CHICKEN NOODLE SOUP, TOLERATING WELL, WILL CONTINUE TO MONITOR PT.
--- NOTE | 2017-08-17 11:30 | NUR ---
PT TOLERATED CHICKEN NOODLE SOUP, DC'ED LEFT WRIST PIV, TIP INTACT, 4X4 AND BAND AID APPLIED, WILL CONTINUE TO MONITOR PT.
--- NOTE | 2017-08-17 11:45 | NUR ---
D/C PAPERWORK SIGNED AND EXPLAINED, PT VERBALIZED UNDERSTANDING FOR POST DISCHARGE.
--- NOTE | 2017-09-13 13:26 | DS ---
PATIENT:GEORGIA ODONNELL :65 MEDICAL RECORD: [id number] DISCHARGE SUMMARY ADMISSION DATE: 08/16/17 DISCHARGE DATE: 08/17/17 She is admitted to the hospital for outpatient intracervical discectomy and fusion. Had the procedure on the day of admission. She stayed overnight in the ICU for serial neuro checks and vital signs. She tolerated the procedure well. She was discharged home on postop day #1 with a regular diet. She is to follow up with Dr. Wahl in 2 weeks, lateral C-spine in 1 month. She is placed on oxycodone for pain control. TRANSINT:[id number] Voice Confirmation ID: [id number] DOCUMENT ID: [id number] KOFI WAHL MD at 1326 CC: [id number] DICTATION DATE: 09/06/17 1223 PANEL LAY UP WORKER: 09/07/17 0808 [facility] [place] 08/17/17 [place] [id number] [place] [address]
== END 2017-08-17 12:00 | disposition home or self-care (01) | DRG 473 ==
LOC: D.CVICU 06:00 → D.SDCHOLD 06:00 → D.CVICU 09:51
PROVIDERS: Anesthesiology; ADMIT Neurological Surgery
PROC: 0PB30ZZ Excision of Cervical Vertebra, Open Approach (ICD-10-PCS; 2017-08-16)
PROC: 0RT30ZZ Resection of Cervical Vertebral Disc, Open Approach (ICD-10-PCS; principal; 2017-08-16 07:30)
PROC: 0RG10A0 Fusion of Cervical Vertebral Joint with Interbody Fusion Device, Anterior Approach, Anterior Column, Open Approach (ICD-10-PCS; 2017-08-16 07:30)
DX: M50.223 Other cervical disc displacement at C6-C7 level (principal); M25.78 Osteophyte, vertebrae; M54.12 Radiculopathy, cervical region; I10 Essential (primary) hypertension; J44.9 Chronic obstructive pulmonary disease, unspecified; Z72.0 Tobacco use

== ENCOUNTER → 2017-09-21 10:31 | Outpatient (CLI) | payer BC ==
[2017-08-17 09:38] VITALS: BMI 32.6
== END | disposition home or self-care (01) ==
LOC: D.MRI 10:31
DX: M54.12 Radiculopathy, cervical region (principal)

== ENCOUNTER 2017-11-24 16:53 | Emergency (ER) | payer BC ==
[2017-08-17 09:38] VITALS: BMI 32.6
== END 2017-11-24 20:22 | disposition home or self-care (01) ==
LOC: D.ER 16:53
DX: S16.1XXA Strain of muscle, fascia and tendon at neck level, initial encounter (principal); W19.XXXA Unspecified fall, initial encounter; Y93.89 Activity, other specified; Y92.019 Unspecified place in single-family (private) house as the place of occurrence of the external cause; S00.03XA Contusion of scalp, initial encounter; S80.12XA Contusion of left lower leg, initial encounter; S80.11XA Contusion of right lower leg, initial encounter; F17.200 Nicotine dependence, unspecified, uncomplicated

== ENCOUNTER 2017-12-27 10:11 | Day surgery (SDC) | payer BC ==
[~2017-12-27] VITALS: Ht 167.6 cm; Wt 89.4 kg
--- NOTE | ~2017-12-27 | OP ---
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 SURGEON: Kofi Wahl MD PROCEDURE: Left posterior cervical foraminotomy at C6-C7 with microscopic illumination. DESCRIPTION OF TECHNIQUE: After induction of general endotracheal anesthesia, the patient was placed in Bess head pins, rolled prone on chest and hip rolls. The C6-C7 interspace was identified with fluoroscopic x-ray and spinal needle. A stab incision was created with #[address] down to the C6-C7 interspace. The fascia was incised with Bovie cautery. Subperiosteal exposure was obtained at the lamina and spinous processes of C6 and C7. Level was confirmed with fluoroscopic x-ray. A microscope and Midas Easton drill were used to perform a laminectomy, medial facetectomy, and foraminotomy at C6-C7 on the left. Hypertrophied ligamentum flavum was removed with Cloward rongeurs. The C7 nerve root appeared to decompress well. Meticulous hemostasis was maintained throughout the wound. The wound was irrigated with copious amounts of Ancef irrigant solution. The fascia was closed with 2-0 Vicryl suture. The subdermal layer was closed with 3-0 Vicryl suture. The skin closed with gayle. A sterile dressing was applied to the wound. The patient was awakened in good condition and taken to recovery. All counts were reported as correct. Estimated blood loss was minimal. TRANSINT:[id number] Voice Confirmation ID: [id number] DOCUMENT ID: [id number] KOFI WAHL MD at 1607 CC: [id number] DICTATION DATE: 12/28/17 0800 LEGAL SPECIALIST: 12/28/17 1238 [facility] 12/28/17 [facility] [address] [place] [address]
[~2017-12-27 10:11] MED LIST changes: +ABILIFY10 MG PO; +VITAMIN D31000 UNIT PO; -VITAMIN D5000 UNIT PO
[2017-12-27 10:57] LABS: HEMOGLOBIN 10.7 g/dL (12-16); MCHC 32.4 g/dL (31.0-37.0); MCV 92.4 fL (80.0-100.0); MEAN PLATELET VOLUME 10.5 fL (7.4-10.4); RBC 3.57 10x6/uL (4.00-5.40); WBC 8.6 10x3/uL (4.8-10.8)
[2017-12-27] MEDS ORDERED: ROBAXIN500 MG PO (11:10)
[2017-12-27] MEDS ORDERED: IBUPROFEN800 MG PO (11:11)
[2017-12-27] MEDS ORDERED: FUROSEMIDE20 MG PO (11:12)
[2017-12-27 11:13] LABS: ANION GAP 16.8 mmol/L (8-16); CALCIUM 8.4 mg/dL (8.5-10.1); CARBON DIOXIDE 21.5 mmol/L (21.0-32.0); CREATININE - SERUM 1.2 mg/dL (0.6-1.3); POTASSIUM - SERUM 4.3 mmol/L (3.5-5.1)
[2017-12-27] MEDS ORDERED: MEDROL DOSE PACK4 MG PO (11:13)
[2017-12-27] MEDS ORDERED: NICODERM C1 PATCH .3 TRANSDERM (11:14)
[2017-12-27 11:26] VITALS: BP 82/37; BMI 30.5
[2017-12-27 21:57] VITALS: BP 110/53; BMI 31.8
[2017-12-27 22:00] VITALS: BP 109/51
[2017-12-27 23:00] VITALS: BP 102/67
[2017-12-28] VITALS (15 sets, daily range): BP systolic 91–111; BP diastolic 38–53; Ht 167.6 cm; Wt 89.4 kg
== END 2017-12-28 14:00 | disposition home or self-care (01) ==
LOC: D.SDCHOLD 10:11 → D.OPS 10:11 → D.CVICU 10:11 → D.SDCHOLD 12:00 → EDSTATUS 12:00 → D.SDCHOLD 12:30 → D.CVICU 19:08 → D.SDCHOLD 19:08 → D.OPS 12-28 14:00 → D.CVICU 12-28 16:00
PROVIDERS: Anesthesiology; Neurological Surgery
PROC: 01N10ZZ Release Cervical Nerve, Open Approach (ICD-10-PCS; principal; 2017-12-27 12:00)
DX: M54.12 Radiculopathy, cervical region (principal); I95.81 Postprocedural hypotension; I25.10 Atherosclerotic heart disease of native coronary artery without angina pectoris; I10 Essential (primary) hypertension; M32.9 Systemic lupus erythematosus, unspecified; J44.9 Chronic obstructive pulmonary disease, unspecified; F32.9 Major depressive disorder, single episode, unspecified; F41.9 Anxiety disorder, unspecified; M79.7 Fibromyalgia; G89.29 Other chronic pain; F17.200 Nicotine dependence, unspecified, uncomplicated; E03.9 Hypothyroidism, unspecified; K21.9 Gastro-esophageal reflux disease without esophagitis; Z01.812 Encounter for preprocedural laboratory examination

== ENCOUNTER 2018-01-05 00:21 | Inpatient (IN) | payer BC ==
[~2018-01-05] VITALS: Ht 167.6 cm; Wt 85.9 kg
[~2018-01-05 00:21] MED LIST changes: +FUROSEMIDE20 MG PO; +IBUPROFEN800 MG PO; +MEDROL DOSE PACK4 MG PO; +NICODERM C1 PATCH .3 TRANSDERM
[2018-01-05 01:31] LABS: BASOPHILS 0.1 % (0-2); EOSINOPHILS 0.2 % (0-7); HEMATOCRIT 26.2 % (36.0-48.0); HEMOGLOBIN 8.9 g/dL (12-16); IMMATURE GRANULOCYTES 0.3 % (0-5); MCH 31.6 pg (26.0-34.0); MCV 92.9 fL (80.0-100.0); MONOCYTES 1.9 % (2-11); NEUTROPHILS 89.5 % (40-80); RBC 2.82 10x6/uL (4.00-5.40); RDW 13.4 % (11.5-14.5); WBC 8.9 10x3/uL (4.8-10.8)
[2018-01-05 01:32] LABS: PLATELET COUNT 320 10x3/uL (130-400)
[2018-01-05 01:51] LABS: ALBUMIN 2.6 g/dL (3.4-5.0); ALKALINE PHOSPHATASE 392 U/L (46-116); ALT (SGPT) 27 U/L (10-68); CALC OSMOLALITY 277 mosm/kg (275-300); CALCIUM 8.7 mg/dL (8.5-10.1); CARBON DIOXIDE 23.7 mmol/L (21.0-32.0); CHLORIDE - SERUM 96 mmol/L (98-107); CREATININE - SERUM 1.5 mg/dL (0.6-1.3); POTASSIUM - SERUM 3.9 mmol/L (3.5-5.1); PROTEIN - SERUM 7.6 g/dL (6.4-8.2); SODIUM 134 mmol/L (136-145); UREA NITROGEN 17 mg/dL (7-18); eGFR NON AFRICAN AMERICAN 39 mL/min (90-120)
[2018-01-05 01:52] LABS: GLUCOSE 236 mg/dL (74-106)
[2018-01-05 01:59] LABS: CKMB 0.5 U/L (0.0-3.6); CREATINE KINASE 60 UL (21-215); PRO BNP 90 pg/mL (0-125); TROPONIN-I < 0.017 ng/mL (0.000-0.060)
[2018-01-05] MEDS ORDERED: CYMBALTA30 MG PO (08:01)
[2018-01-05 08:10] VITALS: BP 125/57
[2018-01-05 09:15] VITALS: BP 125/57; Ht 167.6 cm; Wt 85.9 kg
[2018-01-05] MEDS ORDERED: HYDROCODONE-APA1 TAB PO (12:01)
[2018-01-05 12:49] VITALS: BP 124/58
[2018-01-05 15:55] VITALS: BP 118/54
[2018-01-05 19:21] LABS: CKMB 0.3 U/L (0.0-3.6); CREATINE KINASE 43 UL (21-215)
[2018-01-05 19:22] LABS: TROPONIN-I < 0.017 ng/mL (0.000-0.060)
[2018-01-05 20:46] VITALS: BP 114/53
[2018-01-06 01:30] VITALS: BP 129/43
[2018-01-06 04:49] VITALS: BP 102/84
[2018-01-06 05:29] LABS: BASOPHILS 0.2 % (0-2); EOSINOPHILS 0.9 % (0-7); HEMATOCRIT 26.4 % (36.0-48.0); HEMOGLOBIN 8.6 g/dL (12-16); IMMATURE GRANULOCYTES 0.5 % (0-5); LYMPHOCYTES 20.3 % (15-50); MCH 29.8 pg (26.0-34.0); MCHC 32.6 g/dL (31.0-37.0); MCV 91.3 fL (80.0-100.0); MEAN PLATELET VOLUME 10.1 fL (7.4-10.4); NEUTROPHILS 72.1 % (40-80); PLATELET COUNT 355 10x3/uL (130-400); RBC 2.89 10x6/uL (4.00-5.40); RDW 13.9 % (11.5-14.5); WBC 8.9 10x3/uL (4.8-10.8)
[2018-01-06 05:51] LABS: % SATURATION 16 % (15-55); IRON 41 ug/dl (35-150); TOTAL IRON BIND CAPACITY 253 ug/dl (260-445); UNSAT IRON BIND CAPACITY 212 ug/dl (150-375)
[2018-01-06 06:00] LABS: ALBUMIN 2.6 g/dL (3.4-5.0); ALKALINE PHOSPHATASE 295 U/L (46-116); ALT (SGPT) 28 U/L (10-68); CALC OSMOLALITY 283 mosm/kg (275-300); CHLORIDE - SERUM 106 mmol/L (98-107); CKMB 0.4 U/L (0.0-3.6); CREATINE KINASE 35 UL (21-215); CREATININE - SERUM 1.2 mg/dL (0.6-1.3); FERRITIN 164 ng/mL (3-244); POTASSIUM - SERUM 3.9 mmol/L (3.5-5.1); SODIUM 141 mmol/L (136-145); TROPONIN-I < 0.017 ng/mL (0.000-0.060); UREA NITROGEN 14 mg/dL (7-18); eGFR NON AFRICAN AMERICAN 50 mL/min (90-120)
[2018-01-06 06:01] LABS: GLUCOSE 130 mg/dL (74-106)
[2018-01-06 08:25] VITALS: BP 108/65
[2018-01-06 12:38] VITALS: BP 98/47
[2018-01-06 15:49] VITALS: BP 100/47
[2018-01-06 20:00] VITALS: BP 119/58
[2018-01-07] VITALS: BP 125/61
[2018-01-07 04:00] VITALS: BP 115/57
[2018-01-07 07:01] LABS: BASOPHILS 0.1 % (0-2); EOSINOPHILS 0 % (0-7); HEMATOCRIT 30.2 % (36.0-48.0); HEMOGLOBIN 9.9 g/dL (12-16); IMMATURE GRANULOCYTES 0.6 % (0-5); LYMPHOCYTES 9.8 % (15-50); MCH 29.8 pg (26.0-34.0); MCHC 32.8 g/dL (31.0-37.0); MEAN PLATELET VOLUME 10.2 fL (7.4-10.4); MONOCYTES 2.1 % (2-11); NEUTROPHILS 87.4 % (40-80); RBC 3.32 10x6/uL (4.00-5.40); RDW 14.2 % (11.5-14.5)
[2018-01-07 07:03] LABS: PLATELET COUNT 457 10x3/uL (130-400); WBC 11.3 10x3/uL (4.8-10.8)
[2018-01-07 07:28] LABS: ALBUMIN 3.2 g/dL (3.4-5.0); ANION GAP 20.4 mmol/L (8-16); BILIRUBIN - TOTAL 0.23 mg/dL (0.2-1.3); CALCIUM 9.6 mg/dL (8.5-10.1); CARBON DIOXIDE 21.7 mmol/L (21.0-32.0); CREATININE - SERUM 1.2 mg/dL (0.6-1.3); POTASSIUM - SERUM 4.1 mmol/L (3.5-5.1); PROTEIN - SERUM 8.4 g/dL (6.4-8.2)
[2018-01-07 08:00] VITALS: BP 100/48
[2018-01-07 09:12] LABS: FOLATE (FOLIC ACID) - SERUM 2.2 ng/mL (>3.0)
[2018-01-07 11:59] VITALS: BP 104/52
[2018-01-07 16:16] VITALS: BP 123/63
[2018-01-07 20:00] VITALS: BP 102/83
[2018-01-08] VITALS: BP 131/51
[2018-01-08 04:00] VITALS: BP 126/66
[2018-01-08 05:03] LABS: BASOPHILS 0.1 % (0-2); EOSINOPHILS 0 % (0-7); HEMATOCRIT 29.8 % (36.0-48.0); HEMOGLOBIN 9.7 g/dL (12-16); IMMATURE GRANULOCYTES 0.7 % (0-5); LYMPHOCYTES 8.8 % (15-50); MCH 29.6 pg (26.0-34.0); MCHC 32.6 g/dL (31.0-37.0); MCV 90.9 fL (80.0-100.0); MEAN PLATELET VOLUME 10.2 fL (7.4-10.4); MONOCYTES 2.5 % (2-11); NEUTROPHILS 87.9 % (40-80); PLATELET COUNT 474 10x3/uL (130-400); RBC 3.28 10x6/uL (4.00-5.40); RDW 14.2 % (11.5-14.5); WBC 14.1 10x3/uL (4.8-10.8)
[2018-01-08 05:34] LABS: ALBUMIN 3.3 g/dL (3.4-5.0); BILIRUBIN - TOTAL 0.18 mg/dL (0.2-1.3); CALCIUM 9.4 mg/dL (8.5-10.1); CARBON DIOXIDE 20.5 mmol/L (21.0-32.0); CREATININE - SERUM 1.1 mg/dL (0.6-1.3); POTASSIUM - SERUM 4.5 mmol/L (3.5-5.1); PROTEIN - SERUM 7.5 g/dL (6.4-8.2)
[2018-01-08 08:20] VITALS: BP 98/47
[2018-01-08 10:27] VITALS: BP 127/62
[2018-01-08 11:50] VITALS: BP 108/55
[2018-01-08] MEDS ORDERED: LEVAQUIN750 MG PO (12:24)
[2018-01-08] MEDS ORDERED: OMNICEF300 MG PO (12:25)
[2018-01-08] MEDS ORDERED: PREDNISONE10 MG PO (12:25)
[2018-01-08] MEDS ORDERED: FLORAJEN3 CAPS460 MG PO (12:25)
== END 2018-01-08 14:27 | disposition home or self-care (01) | DRG 190 ==
LOC: D.ER 00:21 → D.MS 06:04
PROVIDERS: Family Medicine
DX: J44.0 Chronic obstructive pulmonary disease with (acute) lower respiratory infection (principal); J18.9 Pneumonia, unspecified organism; J98.11 Atelectasis; F17.203 Nicotine dependence unspecified, with withdrawal; N17.9 Acute kidney failure, unspecified; M79.7 Fibromyalgia; M32.9 Systemic lupus erythematosus, unspecified; E03.9 Hypothyroidism, unspecified; I25.10 Atherosclerotic heart disease of native coronary artery without angina pectoris; R73.9 Hyperglycemia, unspecified; D64.9 Anemia, unspecified; F41.9 Anxiety disorder, unspecified; R55 Syncope and collapse; I10 Essential (primary) hypertension; G89.29 Other chronic pain

== ENCOUNTER → 2019-05-22 10:37 | Outpatient (CLI) | payer MEDICAID ==
[2018-01-05 09:15] VITALS: BMI 30.5
[~2019-05-22 10:37] MED LIST changes: +ASPIRIN325 MG PO; +CYMBALTA30 MG PO; +FLORAJEN3 CAPS460 MG PO; +LEVAQUIN750 MG PO; +MIRALAX17 GM PO; +OMNICEF300 MG PO; +PREDNISONE10 MG PO
== END | disposition home or self-care (01) ==
LOC: D.HCCARDIO 10:37
PROVIDERS: ATTEND Internal Medicine Interventional Cardiology
DX: I25.10 Atherosclerotic heart disease of native coronary artery without angina pectoris (principal)

== ENCOUNTER 2019-05-22 11:06 | Inpatient (IN) | payer MEDICAID ==
[~2019-05-22] VITALS: Ht 167.6 cm; Wt 71.8 kg
--- NOTE | ~2019-05-22 | HEMODYNAMI ---
PATIENT:GEORGIA ODONNELL MEDICAL RECORD: [id number] : 65 LOCATION:D.CAT ADMISSION DATE: 05/22/19 Generatedon:05/22/201916:18 Patient name: GEORGIA ODONNELL Patient #: [id number] SSN: : 1965 Date of study: 05/22/2019 Page: Of Hemodynamic Procedure Report Patient Data Patient Demographics Procedure consent was obtained First Name: GEORGIA Gender: Female Last Name: BELLE : 1965 [facility] Initial: CHRIS Age: 53 year(s) Patient #: [id number] Race: Unknown Additional ID: [id number] Contact details [address]: [address] [place] [address] State: [place] City: [place] Zip code: [address] Past Medical History Allergies Allergen Reaction Date Comments Reported Sulfa drugs 03/01/2017 Other allergy 03/01/2017 Erythromycin Admission Admission Data Admission Date: 05/22/2019 Admission Time: 11:06 Procedure Procedure Types Cath Procedure Diagnostic Procedure LHC LHC w/Coronaries Procedure Description Procedure Date Procedure Date: 05/22/2019 Procedure Start Time: 16:04 Procedure End Time: 16:17 Procedure Staff Name Function Toi Amaral MD Performing Physician Radha Jean RT Monitor Kaity Williamson RT Scrub Daisy Ang RN Nurse Procedure Data Cath Procedure Fluoroscopy Diagnostic fluoroscopy Total fluoroscopy Time: 1.9 time: 1.9 min min Diagnostic fluoroscopy Total fluoroscopy dose: 363 dose: 363 mGy mGy Contrast Material Contrast Material Type Amount (ml) Isovue 300 66 Entry Location Entry Primary Successful Side Size Upsize Upsize Entry Closure Succes sful Closure Location (Fr) 1 (Fr) 2 (Fr) Remarks Device Remarks Femoral Right 5 Fr Exoseal artery Estimated blood loss: 5 ml Diagnostic catheters Device Type Used For End Catheter Placement MULTIPACK Pigtail 5 Fr Procedure catheter MULTIPACK JL 4.0 5Fr Procedure catheter MULTIPACK 3DRC 5Fr Procedure catheter Procedure Complications No complications Procedure Medications Medication Administration Route Dosage 0.9% NaCl I.V. 100 ml/hr Oxygen etCO2 Nasal cannula 2 l/min Lidocaine 2% added to field 20 Heparin Flush Bag added to field 2 bags (1000units/500ml NS) Versed I.V. 2 mg Fentanyl I.V. 50 mcg Hemodynamics Rest Heart Rate: 80 (bpm) Snapshots Pre Cath Intra NCS Post Cath Vital Signs Time Heart Resp SPO2 etCO2 NIBP Rhythm Pain Sedation Rate (ipm) (%) (mmHg) (mmHg) Status Level (bpm) 15:57:05 78 18 100 26.2 115/50(78) NSR 0 (11) 10(A) , No pain 16:01:23 80 16 100 23.9 108/57(76) NSR 0 (11) 10(A) , No pain 16:05:41 77 16 98 29.2 97/52(76) NSR 0 (11) 10(A) , No pain 16:09:55 76 17 97 17.2 98/52(69) NSR 0 (11) 10(A) , No pain 16:14:07 76 16 97 32.2 99/53(73) NSR 0 (11) 10(A) , No pain Medications Time Medication Route Dose Verified Delivered Reason Notes Eff ectiveness by by 16:03:10 0.9% NaCl I.V. 100 Toi Daisy used for ml/hr Munir Ang christian science healer 16:03:22 Oxygen etCO2 2 Toi Daisy used for Nasal l/min Munir Ang procedure cannula RN 16:03:27 Lidocaine 2% added 20ml Toi Toi for local to vial Munir Amaral MD anesthetic field 16:03:31 Heparin Flush added 2 Toi Toi used for Bag to bags Munir Amaral MD procedure (1000units/500ml field NS) 16:03:41 Versed I.V. 2 mg Toi Daisy for Munir Ang sedation RN 16:03:46 Fentanyl I.V. 50 Toi Daisy for mcg Munir Ang sedation wellness instructor Log Time Note 15:35:01 Daisy Ang RN sent for patient. Start room use. 15:53:15 Time tracking: Regular hours (M-F 7:00 - 5:00) 15:53:22 Plan of Care:Hemodynamics will remain stable., Cardiac rhythm will remain stable., Comfort level will be maintained., Respiratory function will remain adequate., Patient/ family verbilizes understanding of procedure., Procedure tolerated without complication., Recovers from procedure without complications.. 15:53:54 Patient received from ED to CCL 1 Alert and oriented. Tansferred to table in Supine position. 15:53:57 Signed procedure consent form obtained from patient. 15:53:57 Warm blankets applied, and ryan hugger turned on for patient comfort. 15:53:58 Correct patient and procedure confirmed by team. 15:53:58 ECG and BP/O2 sat monitors applied to patient. 15:55:45 Vital chart was started 15:55:47 Baseline sample Acquired. 15:56:00 Rhythm: sinus rhythm 15:56:01 Full Disclosure recording started 15:56:06 H&P Date Dictated: 05/22/2019 Emergent; H&P N/A. 15:56:07 Pre-procedure instructions explained to patient. 15:56:07 Pre-op teaching completed and patient verbalized understanding. 15:56:14 Family in patients room. 15:56:16 Patient NPO since Midnight. 15:56:18 Is the patient allergic to Iodine/contrast media? No. 15:56:21 Is patient on blood thinner?No 15:57:01 Patient diabetic? No. 15:57:07 Previous problem with sedation/anesthesia? No ? 15:57:10 Snore? Yes 15:57:11 Sleep apnea? No 15:57:12 Deviated septum? No 15:57:13 Opens mouth fully? Yes 15:57:13 Sticks out tongue? Yes 15:57:15 Airway obstruction? No ? 15:57:17 Dentures? No ? 15:57:20 Pre procedure: right dorsailis pedis pulse 1+ Palpable, but thready & weak; easily obliterated 15:57:23 Patient pain scale 0/10 ?. 15:57:30 IV patent on arrival in right forearm with 0.9% NaCl at [facility]. 15:57:36 Lab results completed and on chart. 15:57:40 Right groin area was prepped with chlora-prep and draped in sterile fashion 15:57:42 Alarms reviewed by R. N. 15:57:42 Sharps counted by scrub and verified by R.N. 15:59:26 Use device set Femoral Dx 15:59:27 ACIST Hand Control (36772) opened to sterile field. 15:59:27 ACIST Manifold (72013) opened to sterile field. 15:59:29 ACIST Syringe (44256) opened to sterile field. 15:59:29 Bag Decanter (2002S) opened to sterile field. 15:59:29 Medline Cath Pack ([id number]) opened to sterile field. 15:59:32 Tegaderm 4 x 4 (1626W) opened to sterile field. 15:59:33 DIAGNOSTIC Multipack 5Fr catheter set (XH0459) opened to sterile field. 15:59:33 SHEATH 5FR [place] (PEJ914) opened to sterile field. 15:59:34 EMERALD Guide Wire (975-992) opened to sterile field. 16:02:49 Procedure Status Urgent Heart Cath (IP). 16:03:10 0.9% NaCl 100 ml/hr I.V. was administered by Daisy Ang RN; used for procedure; 16:03:14 --------ALL STOP TIME OUT------ 16:03:14 Final Timeout: patient, procedure, and site verified with staff and physician. All members of the team are in agreement. 16:03:17 Right groin site verified by team. 16:03:21 Fire Safety Assessment: A--An alcohol-based skin anteseptic being used preoperatively., C--Open oxygen or nitrous oxide is being used., D--An ESU, laser, or fiber-optic light is being used. 16:03:22 Oxygen 2 l/min etCO2 Nasal cannula was administered by Daisy Ang RN; used for procedure; 16:03:24 Physical assessment completed. ASA score P 2 - A patient with mild systemic disease as per Toi Amaral MD. 16:03:27 Lidocaine 2% 20ml vial added to field was administered by Toi Amaral MD; for local anesthetic; 16:03:31 Heparin Flush Bag (1000units/500ml NS) 2 bags added to field was administered by Toi Amaral MD; used for procedure; 16:03:41 Versed 2 mg I.V. was administered by Daisy Ang RN; for sedation; 16:03:43 2) 60-89 Mildly reduced kidney function, and other findings (as for stage 1) point to kidney disease. 16:03:46 Fentanyl 50 mcg I.V. was administered by Daisy Ang RN; for sedation; 16:04:00 Maximum allowable contrast dose (3.7 X eGFR X 0.75)160 ml. 16:04:04 Sedation plan: IV Moderate Sedation Medication:Versed, Fentanyl 16:04:24 Procedure started. 16:04:47 Local anesthetic to right femoral artery with Lidocaine 2% by Toi Amaral MD.INITIAL ACCESS ONLY 16:05:03 A 5 Fr sheath was inserted into the Right Femoral artery 16:05:13 Zero performed for pressure channel P1 16:05:24 Zero performed for pressure channel P1 16:05:51 A MULTIPACK Pigtail 5 Fr catheter was advanced over the wire and used for Procedure. 16:05:58 LV gram done using CORMIER 16:06:01 Injector settings: Ml/sec: 10, Volume: 20, 16:06:33 EF : 55 % 16:06:34 Catheter removed. 16:06:55 A MULTIPACK JL 4.0 5Fr catheter was advanced over the wire and used for Procedure. 16:07:49 LCA angiography performed. 16:07:50 Catheter removed. 16:08:19 A MULTIPACK 3DRC 5Fr catheter was advanced over the wire and used for Procedure. 16:08:43 RCA angiography performed. 16:08:44 Catheter removed. 16:09:38 INFLATOR Merit BasixCompak (WH1855) opened to sterile field. 16:09:38 [place] Verrata Plus pressure wire (04843A) opened to sterile field. 16:09:39 GUIDE 5FR EBU 3.5 catheter (WW1TGD10) opened to sterile field. 16:09:50 5 Fr EBU 3.5 guide catheter was inserted over the wire 16:11:06 FFR/IFR wire advanced. 16:11:52 Wire advanced across lesion. 16:12:11 mLAD lesion measured at .92 with IFR 16:13:03 Wire removed. 16:13:04 Guide catheter removed. 16:13:09 EXOSEAL 5Fr (EX500) opened to sterile field. 16:13:51 Sheath removed intact; hemostasis achieved with Exoseal to the Right Femoral artery. 16:13:57 Procedure ended.(Physican Out) 16:15:00 Fluoroscopy time 01.90 minutes. 16:15:05 Fluoroscopy dose: 363 mGy 16:15:05 Flurop Dose total: 363 16:15:10 Dose Area Product 89658 mGy/cm. 16:15:14 Contrast amount:Isovue 300 66ml. 16:15:22 Maximum allowable dose exceeded? No. 16:15:23 Sharps counted by scrub and verified by R.N. 16:15:39 Post-op/insertion site Right Femoral artery dressed using a 4 x 4 and Tegaderm. 16:15:41 Post-procedure physical assessment completed. ASA score P 2 - A patient with mild systemic disease as per Toi Amaral MD. 16:15:45 Post procedure rhythm: sinus rhythm 16:16:41 Estimated blood loss: 5 ml 16:17:00 Post procedure instruction explained to patient.Patient verbalizes understanding. 16:17:00 Patient needs reinforcement of post procedure teaching. 16:17:19 Procedure and supply charges have been captured, reviewed, submitted and are correct. 16:17:22 Procedure Complication : No complications 16:17:24 Vital chart was stopped 16:17:24 See physician's report for complete and final results. 16:17:27 Report given to [facility]. 16:17:30 Patient transfered to [facility] with Bed. 16:17:32 Procedure ended. 16:17:32 Full Disclosure recording stopped 16:17:36 End room use (Document Last) Device Usage Item Name Manufacture Quantity Catalog Hospital Part Current Minima l Lot# / Number Charge Number Stock Stock Serial# Code ACIST Hand Acist 1 49308 [id number] 207556 072472 5 Control Medical (52605) Systems Inc ACIST Acist 1 27474 528904 345122 048053 5 Manifold Medical (74926) Systems Inc ACIST Acist 1 55018 788776 954814 069007 20 Syringe Medical (08170) Systems Inc Bag Microtek 1 203521 88480 269242 5 Decanter Medical Inc. () Medline Medline 1 [id number] 878031 66594 303038 5 Cath Pack (PHHS72432) Tegaderm 4 3M 1 1626W 226674 149531 269733 5 x 4 (1626W) DIAGNOSTIC Cardinal 1 BN1399 947257 12141 268911 30 Privaris 5Fr catheter set (SO8977) SHEATH 5FR Terumo 1 GQT048 501694 207171 635357 5 [place] (YXM596) EMERALD Cardinal 1 053-083 600550 681614 147555 5 Guide Wire [facility] (477-291) MULTIPACK Cardinal 1 075025 5 Pigtail 5 Health Fr catheter MULTIPACK Cardinal 1 832917 5 JL 4.0 5Fr Health catheter MULTIPACK Cardinal 1 335853 5 3DRC 5Fr Health catheter INFLATOR Merit 1 FZ3084 565554 730938 403824 15 Kpc [facility] Medical BasixCompak (WI9090) [place] Hartville 1 20792B 716267 123030429 690460 5 Verrata Plus pressure wire (06034F) GUIDE 5FR Medtronic 1 [id number] 269927 487102 343128 1 EBU 3.5 catheter (TK1MSK95) EXOSEAL 5Fr Cardinal 1 EX500 193529 806622 094136 10 (EX500) Health Signature Audit [place] Stage Time Signature Unsigned Intra-Procedure 05/22/2019 Radha Jean 4:17:56 PM RT(R) Signatures Performing Physician : Signature : Toi Amaral MD Date : Time : Monitor : Radha Jean Signature : RT Date : Time : Nurse : Daisy Ang RN Signature : Date : Time : [facility] [address] [place] [address]
[~2019-05-22 11:06] MED LIST changes: -ASPIRIN325 MG PO; -MIRALAX17 GM PO
--- NOTE | 2019-05-22 11:25 | NUR ---
DR. GRULLON AT BEDSIDE.
[2019-05-22 11:54] LABS: ALBUMIN 3.6 g/dL (3.4-5.0); ALKALINE PHOSPHATASE 165 U/L (46-116); ALT (SGPT) 35 U/L (10-68); BILIRUBIN - TOTAL 0.18 mg/dL (0.2-1.3); CALC OSMOLALITY 279 mosm/kg (275-300); CALCIUM 9.2 mg/dL (8.5-10.1); CARBON DIOXIDE 20.6 mmol/L (21.0-32.0); CHLORIDE - SERUM 106 mmol/L (98-107); POTASSIUM - SERUM 4.2 mmol/L (3.5-5.1); PROTEIN - SERUM 7.9 g/dL (6.4-8.2); SODIUM 138 mmol/L (136-145); UREA NITROGEN 22 mg/dL (7-18); eGFR NON AFRICAN AMERICAN 61 mL/min (90-120)
[2019-05-22 11:55] LABS: GLUCOSE 118 mg/dL (74-106)
--- NOTE | 2019-05-22 12:00 | NUR ---
OCCULT STOOL TESTING OBTAINED. RESULT= NEGATIVE. EDP, DOWNEN, INFORMED OF RESULTS.
[2019-05-22 12:01] LABS: AMYLASE - SERUM 20 U/L (25-115); CREATINE KINASE 88 UL (21-215); LIPASE 82 U/L (73-393); MAGNESIUM - SERUM 2.2 mg/dL (1.8-2.4); TROPONIN-I < 0.017 ng/mL (0.000-0.060)
[2019-05-22 12:21] VITALS: BP 118/40
[2019-05-22 12:46] LABS: BASOPHILS 0.1 % (0-2); EOSINOPHILS 0 % (0-7); HEMATOCRIT 32.9 % (36.0-48.0); HEMOGLOBIN 11.4 g/dL (12-16); IMMATURE GRANULOCYTES 0.2 % (0-5); LYMPHOCYTES 6.9 % (15-50); MCH 30.6 pg (26.0-34.0); MCHC 34.7 g/dL (31.0-37.0); MCV 88.4 fL (80.0-100.0); MONOCYTES 4.8 % (2-11); RBC 3.72 10x6/uL (4.00-5.40); RDW 14.5 % (11.5-14.5); WBC 13.2 10x3/uL (4.8-10.8)
[2019-05-22 12:47] LABS: PLATELET COUNT 216 10x3/uL (130-400)
--- NOTE | 2019-05-22 13:05 | NUR ---
PT TO RADIOLOGY AT THIS TIME.
[2019-05-22 13:15] VITALS: BP 124/49; BP 124/80
[2019-05-22 14:15] VITALS: BP 126/46; BP 126/82
[2019-05-22 14:38] LABS: INR 0.92 (0.85-1.17); PROTIME 11.9 SECONDS (11.6-15.0)
--- NOTE | 2019-05-22 14:46 | NUR ---
PT C/O CHEST PAIN 8/10 AT THIS TIME.
--- NOTE | 2019-05-22 14:56 | NUR ---
RYNE JARAMILLO, AT BEDSIDE.
[2019-05-22 15:16] VITALS: BP 108/48; BP 108/72
--- NOTE | 2019-05-22 15:40 | NUR ---
HARIS WITH CELLULAR PHONE REPAIRER AT BEDSIDE TO TAKE PATIENT FOR HEART CATH. REPORT GIVEN AT BEDSIDE. INFORMED KEERTHI AND GHISLAINE THAT LEVAQUIN WAS NOT GIVEN PRIOR TO LEAVING ER. PT ALERT AND ORIENTED UPON DEPARTURE FROM ED.
[2019-05-22 17:10] VITALS: Ht 167.6 cm; Wt 71.8 kg
[2019-05-22 18:36] VITALS: BP 99/53
[2019-05-22 20:00] VITALS: BP 115/97
[2019-05-23] VITALS: BP 100/48
[2019-05-23 04:00] VITALS: BP 95/49
[2019-05-23 05:32] LABS: BASOPHILS 0 % (0-2); EOSINOPHILS 0.1 % (0-7); HEMATOCRIT 31.9 % (36.0-48.0); HEMOGLOBIN 10.6 g/dL (12-16); IMMATURE GRANULOCYTES 0.2 % (0-5); LYMPHOCYTES 13.1 % (15-50); MCH 29.5 pg (26.0-34.0); MCHC 33.2 g/dL (31.0-37.0); MCV 88.9 fL (80.0-100.0); MEAN PLATELET VOLUME 10.2 fL (7.4-10.4); MONOCYTES 6.2 % (2-11); NEUTROPHILS 80.4 % (40-80); PLATELET COUNT 214 10x3/uL (130-400); RBC 3.59 10x6/uL (4.00-5.40); RDW 14.8 % (11.5-14.5)
[2019-05-23 05:41] LABS: WBC 9.2 10x3/uL (4.8-10.8)
[2019-05-23 05:55] LABS: ALBUMIN 3.3 g/dL (3.4-5.0); ANION GAP 15.8 mmol/L (8-16); BILIRUBIN - TOTAL 0.19 mg/dL (0.2-1.3); CALCIUM 8.6 mg/dL (8.5-10.1); CARBON DIOXIDE 21.3 mmol/L (21.0-32.0); CREATININE - SERUM 1.1 mg/dL (0.6-1.3); MAGNESIUM - SERUM 2.1 mg/dL (1.8-2.4); POTASSIUM - SERUM 4.1 mmol/L (3.5-5.1); PROTEIN - SERUM 7.4 g/dL (6.4-8.2)
--- NOTE | 2019-05-23 09:55 | NUR ---
REFUSED SCDS AT THIS TIME.
[2019-05-23 11:56] LABS: % SATURATION 13 % (15-55); IRON 52 ug/dl (35-150); TOTAL IRON BIND CAPACITY 385 ug/dl (260-445); UNSAT IRON BIND CAPACITY 333 ug/dl (150-375)
[2019-05-23 12:39] VITALS: BP 91/45
[2019-05-23 19:00] VITALS: BP 117/59
--- NOTE | 2019-05-23 19:54 | NUR ---
PATIENT REQUESTED PAIN MEDICATION AND TO GO OUTSIDE TO SMOKE. EXPLAINED TO PATIENT THAT I DO NOT FEEL COMFORTABLE GIVING PAIN MEDICATION AND THEN HER GOING OUTSIDE TO SMOKE WITH A NICODERM PATCH.
[2019-05-24] VITALS: BP 101/47; BP 106/54; BP 108/49
--- NOTE | 2019-05-24 02:55 | NUR ---
ORTHOSTATIC BP LAYIN/54 O2 96 2L NC HR 84 SITTIN/47 O2 97 2L NC HR 84 STANDIN/49 O2 94 2L NC HR 87
[2019-05-24 05:34] LABS: BASOPHILS 0.1 % (0-2); EOSINOPHILS 1.5 % (0-7); HEMATOCRIT 29.8 % (36.0-48.0); HEMOGLOBIN 9.8 g/dL (12-16); IMMATURE GRANULOCYTES 0.4 % (0-5); MCH 29.3 pg (26.0-34.0); MCHC 32.9 g/dL (31.0-37.0); MEAN PLATELET VOLUME 10.3 fL (7.4-10.4); MONOCYTES 8.8 % (2-11); NEUTROPHILS 61.2 % (40-80); PLATELET COUNT 202 10x3/uL (130-400); RBC 3.35 10x6/uL (4.00-5.40); RDW 14.6 % (11.5-14.5)
[2019-05-24 05:49] LABS: WBC 6.8 10x3/uL (4.8-10.8)
[2019-05-24 05:54] LABS: BILIRUBIN - TOTAL 0.21 mg/dL (0.2-1.3); CALCIUM 8.3 mg/dL (8.5-10.1); CARBON DIOXIDE 23.4 mmol/L (21.0-32.0); CREATININE - SERUM 1.2 mg/dL (0.6-1.3); MAGNESIUM - SERUM 1.8 mg/dL (1.8-2.4); POTASSIUM - SERUM 4.4 mmol/L (3.5-5.1); PROTEIN - SERUM 6.5 g/dL (6.4-8.2)
[2019-05-24 08:55] VITALS: BP 100/48
[2019-05-24 12:31] VITALS: BP 97/48
[2019-05-24] MEDS ORDERED: ASPIRIN325 MG PO (13:14)
[2019-05-24] MEDS ORDERED: MIRALAX17 GM PO (13:15)
[2019-05-24] MEDS ORDERED: LEVAQUIN750 MG PO (13:19)
--- NOTE | 2019-05-24 16:17 | NUR ---
IV AND TELEMETRY DCD. DC PLANS GIVEN. UNDERSTANDING VOICED.
--- NOTE | 2019-05-24 17:25 | MORECARE ---
CASE MANAGEMENT DISCHARGE SUMMARY PATIENT: GEORGIA ODONNELL CHRIS UNIT: [id number] ADM DATE: 05/22/19 AGE: 53 : 65 SEX: F ROOM/BED: D.7500 AUTHOR: ACACIA BEAN PHYSICIAN: REFERRING PHYSICIAN: ROMAN COLON MD DATE OF SERVICE: 05/24/19 Discharge Plan Patient Name: GEORGIA ODONNELL Facility: [facility]:[place] : 1965 Planned Disposition: Home Anticipated Discharge Date: 05/24/19 Discharge Date: 05/24/2019 Expected LOS: 2 Initial Reviewer: [email or web address] Initial Review Date: 05/24/2019 Generated: 05/24/19 6:25 pm Comments DCP- Discharge Planning Updated by [email or web address]: Zi Steward on 05/24/19 4:[address] Patient Name: GEORGIA ODONNELL Admission Status: ER Accout number: [id number] Admission Date: 05-22-2019 : 1965 Admission Diagnosis:CHEST PAIN, UNSPECIFIED Attending: ISAIAH, Current LOS: 2 Anticipated DC Date: 05-24-2019 Planned Disposition: Home Primary Insurance: [place]ICAID [place] Discharge Planning Comments: CM ATTEMPTED TO MEET WITH PT FOR INITIAL ASSESSMENT OF DISCHARGE NEEDS. PT WAS IN THE SHOWER AT APPROXIMATELY 1420 HOURS. CM ATTEMPTED AGAIN AT APPROXIMATELY 1540 HOURS. PT HAD DISCHARGED HOME. Factory Worker: Zi Steward Patient Name: GEORGIA ODONNELL Page [id number] at 1725 All edits/amendments must be made on the electronic document DICTATION DATE: 05/24/19 1725 SHOT BLASTER: SUSI 05/24/19 1725 RPT#: [id number] DC DATE:05/24/19 STATUS: DIS IN [facility] [address] [place] [address] END OF REPORT
--- NOTE | 2019-05-29 11:09 | OP ---
PATIENT NAME: GEORGIA ODONNELL MEDICAL RECORD: [id number] :65 LOCATION:D.M2 D.2117 ADMISSION DATE:05/22/19 SURGEON: LOUANN GRULLON MD DATE OF OPERATION: 05/22/2019 PROCEDURES: 1. Left heart catheterization. 2. Selective coronary angiography. 3. Left ventriculogram. 4. IFR. INDICATION: Chest pain, coronary artery disease, previous PTCA stent, hypertension, hyperlipidemia. PROCEDURE IN DETAIL: After informed consent was obtained and after a detailed description of the risks, benefits as well as alternative therapies, the patient elected to proceed with angiogram and heart catheterization. The right femoral area was prepped and draped in normal sterile fashion. Right femoral artery was cannulated via modified Seldinger technique with placement of 5-Maltese sheath. All catheters exchanged through this sheath. FINDINGS: Left ventriculogram was performed in standard 30-degree CORMIER view, reveals good cardiac wall motion throughout all segments. Overall ejection fraction estimated 60%. SELECTIVE CORONARY ANGIOGRAPHY: 1. Left main is with no significant angiographic disease. 2. Left anterior descending has previously placed stents, these are widely patent. There is a questionable stenosis after this; however, IFR was normal. 3. Left circumflex has moderate irregularities, but no flow-limiting stenosis. 4. Right coronary has moderate irregularities, but no flow-limiting stenosis. OVERALL IMPRESSION: Wide patency of the previously placed stents with no significant disease elsewise. Continue medical management of the coronary artery disease and cardiac risk factors. TRANSINT:[id number] Voice Confirmation ID: [id number] DOCUMENT ID: [id number] LOUANN GRULLON MD at 1109 CC: [id number] DICTATION DATE: 05/22/19 1619 PODODERMATOLOGIST: 05/22/19 1636 DIS IN 05/24/19 [place] [address]
--- NOTE | 2019-05-29 11:09 | CN ---
PATIENT NAME:GEORGIA ODONNELL MEDICAL RECORD: [id number] : 65 LOCATION:D.M2 D.2117 ADMIT DATE: 05/22/19 ACCOUNT: [id number] CONSULTING PHYSICIAN: LOUANN GRULLON MD REFERRING PHYSICIAN: ROMAN COLON MD DATE OF CONSULTATION: 05/22/2019 DIAGNOSES: 1. Unstable angina class IV. 2. Coronary artery disease. 3. Previous PTCA and stent of LAD approximately 3 years ago. 4. Hypertension. 5. Hyperlipidemia. 6. Chronic obstructive pulmonary disease. 7. Smoking history. 8. Lupus. HISTORY OF PRESENT ILLNESS: Ms. Odonnell is known to our practice. Dr. Verduzco did PTCA and stent of her LAD approximately 3 years ago. She has been having increasing episodes of chest pain. She has now presented for nuclear stress testing today, was having class IV active chest discomfort. She was crying with the chest discomfort. She was sent to the Emergency Room. She continues to have 6-7/10 chest pain. She is on maximal medical therapy with a beta-jagdeep, calcium channel jagdeep, long-acting nitrate and has continued to have the episodes of chest discomfort as well. She is on a statin, pulmonary-directed medications, Lasix. She as well has had class 3 dyspnea on exertion. Her other medical problems do include abdominal pain. She states that she feels like she has a GI ulcer. She has been on omeprazole and Zantac. She has no history of a GI ulcer or GI bleeds. Her EKG does show T-wave inversions in the inferior leads suggestive of inferior ischemia. PHYSICAL EXAMINATION: CONSTITUTIONAL/GENERAL APPEARANCE: Well nourished, well developed, appears stated age. Level of distress, comfortable. EYES: Lids and conjunctivae noninjected. No discharge. No pallor. ENT: Lips within normal limit. No cyanosis. No pallor. NECK: Carotid arteries, bilateral normal upstroke. No bruits. No thrills. No jugular venous pressure or distention. CERVICAL LYMPH NODES: Nontender. Nonenlarged. THYROID: Not enlarged. No nodules. CARDIOVASCULAR: Precordial exam, nondisplaced. No heaves or pericardial thrills. Rate and rhythm, regular. Heart sounds, normal S1, normal S2. No S3, no gallop, no rub. Systolic murmur, not heard. Diastolic murmur, not heard. RESPIRATORY: Respiratory effort, unlabored. Normal curvature. No thoracic deformity. No chest wall tenderness. Percussion, resonant. Auscultation, clear. No wheezes, no rales, no rhonchi. ABDOMEN: Soft, nondistended, nontender. No abdominal pain, no vomiting and normal appetite. MUSCULOSKELETAL: No joint tenderness, normal gait, normal tone. SKIN: Warm and dry. OVERALL IMPRESSION: Class IV anginal symptomatology in a patient with a past history of coronary artery disease, on maximal medical therapy. We will proceed with coronary angiography. Further care depends upon the findings of the angiography. CONSULT REPORT [id number] GEORGIA ODONNELL CHRIS TRANSINT:[id number] Voice Confirmation ID: [id number] DOCUMENT ID: [id number] LOUANN GRULLON MD at 1109 CC: [id number] DICTATION DATE: 05/22/19 1142 GRAPHICS PRODUCTION SPECIALIST: 05/22/19 1201 DIS IN 05/24/19 [place] [id number] [place] [address]
== END 2019-05-24 16:18 | disposition home or self-care (01) | DRG 287 ==
LOC: D.ER 11:06 → D.CATH 11:06 → EDSTATUS 16:02 → D.M2 16:47 → D.CATH 16:51 → D.M2 16:51
PROVIDERS: Family Medicine; Internal Medicine Interventional Cardiology; ADMIT Family Medicine; ATTEND Family Medicine
PROC: B2151ZZ Fluoroscopy of Left Heart using Low Osmolar Contrast (ICD-10-PCS; 2019-05-22)
PROC: 4A023N7 Measurement of Cardiac Sampling and Pressure, Left Heart, Percutaneous Approach (ICD-10-PCS; 2019-05-22)
PROC: 4A033BC Measurement of Arterial Pressure, Coronary, Percutaneous Approach (ICD-10-PCS; 2019-05-22)
PROC: B2111ZZ Fluoroscopy of Multiple Coronary Arteries using Low Osmolar Contrast (ICD-10-PCS; principal; 2019-05-22 15:35)
DX: I25.110 Atherosclerotic heart disease of native coronary artery with unstable angina pectoris (principal); F17.213 Nicotine dependence, cigarettes, with withdrawal; R55 Syncope and collapse; E03.9 Hypothyroidism, unspecified; M32.9 Systemic lupus erythematosus, unspecified; J44.9 Chronic obstructive pulmonary disease, unspecified; E78.5 Hyperlipidemia, unspecified; I10 Essential (primary) hypertension; K59.00 Constipation, unspecified; Z86.73 Personal history of transient ischemic attack (TIA), and cerebral infarction without residual deficits

== ENCOUNTER → 2019-05-28 13:37 | Outpatient (CLI) | payer MEDICAID ==
[2019-05-22 17:10] VITALS: BMI 25.5
[~2019-05-28 13:37] MED LIST changes: +ASPIRIN325 MG PO; +MIRALAX17 GM PO
--- NOTE | 2019-05-31 08:42 | EC ---
PATIENT:GEORGIA ODONNELL DATE OF SERVICE: 05/28/19 SEX: F MEDICAL RECORD: [id number] DATE OF : 65 LOCATION:D.[facility] AGE OF PATIENT: 53 ADMISSION DATE: 05/28/19 REFERRING PHYSICIAN: INTERPRETING PHYSICIAN: FRAN PRADHAN MD ECHOCARDIOGRAM REPORT ECHO CHARGES 4 ECHO COMPLETE Date: 05/28/19 CLINICAL DIAGNOSIS: SOB/DYSPNEA ON EXERTION, ASSESS FOR CARDIOMYOPATHY ECHOCARDIOGRAPHIC MEASUREMENTS (adult normal given) AC root (d.<3.7cm) 3.1 cm LV Septum d (<1.2 cm> 1.4 cm Valve Excursion 1.6 cm LV Septum (systole) 1.6 cm Left Atria (s.<4.0cm> 3.2 cm LVPW d(<1.2cm) 1.6 cm RV (d.<2.3cm) 3.6 cm LVPW (sytole) 1.8 cm LV diastole(<5.6CM) 4.3 cm MV E-F(>70mm/sec) cm LV systole 2.6 cm LVOT Diameter 1.8 cm MV exc.(>10mm) 1.6 cm Est.ejection fraction (50-75%) % DOPPLER: LVIT cm/sec A 68.0 cm/sec E 73.0 cm/sec LA cm/sec RVSP 21 mmHg LVOT 97 cm/sec AOP1/2T m/s Asc. Ao 128 cm/sec RVOT 65 cm/sec RA cm/sec PA 98 cm/sec AV Gradient Peak 6.59 mmHg AV Mean 3.11 mmHg AV Area 2.2 cm MV Gradient Peak 2.95 mmHg MV Mean 1.43 mmHg MV Area cm COMMENTS: Sales Attendant: 2 SIDDHARTH MYERS City Auditor: 3 Dr. George TAPE# PACS Pericardial Effusion N DATE OF SERVICE: Adequate 2D, color flow, spectral Doppler, and M-mode. LVH is present. LV internal dimension is normal. Wall motion is normal. EF is greater than or equal to 55%. Aortic valve is tricuspid. No evidence of stenosis by Doppler interrogation. Left atrium is normal at 3.2 cm. Mitral valve shows no prolapse. Trace MR. Right-sided chambers grossly normal. Trace TR. TRANSINT:[id number] Voice Confirmation ID: [id number] DOCUMENT ID: [id number] ECHOCARDIOGRAM REPORT [id number] GEORGIA ODONNELL,FRAN Cuellar MD at 0842 CC: [id number] DICTATION DATE: 05/29/19 1226 SCAGLIOLA MECHANIC: 05/29/19 1253 DEP CLI 05/28/19 [place] [id number] [place] [address]
== END | disposition home or self-care (01) ==
LOC: D.HCCARDIO 05-25 11:00
PROVIDERS: ATTEND Internal Medicine Interventional Cardiology
DX: R06.02 Shortness of breath (principal)

== ENCOUNTER → 2019-08-13 15:17 | Outpatient (CLI) | payer MEDICAID ==
[2019-05-22 17:10] VITALS: BMI 25.5
== END | disposition home or self-care (01) ==
LOC: D.RAD 15:17
PROVIDERS: ATTEND Internal Medicine Pulmonary Disease
DX: J18.9 Pneumonia, unspecified organism (principal)

== ENCOUNTER 2020-03-31 08:11 | Day surgery (SDC) | payer MEDICAID ==
[~2020-03-31] VITALS: Ht 167.6 cm; Wt 85.0 kg
[2020-03-31 08:27] LABS: HEMATOCRIT 36.3 % (36.0-48.0); HEMOGLOBIN 12.1 g/dL (12-16); MCH 29.4 pg (26.0-34.0); MCHC 33.3 g/dL (31.0-37.0); MCV 88.3 fL (80.0-100.0); MEAN PLATELET VOLUME 9.9 fL (7.4-10.4); RBC 4.11 10x6/uL (4.00-5.40); RDW 12.3 % (11.5-14.5); WBC 4.6 10x3/uL (4.8-10.8)
[2020-03-31 08:37] LABS: ANION GAP 10.2 mmol/L (8-16); CALCIUM 8.7 mg/dL (8.5-10.1); CARBON DIOXIDE 27.3 mmol/L (21.0-32.0); POTASSIUM - SERUM 3.5 mmol/L (3.5-5.1)
[2020-03-31] MEDS ORDERED: PERCOCET 10-321 EAC1 PO (09:35)
[2020-03-31] MEDS ORDERED: FLUTICASONE PRO16 GM NASAL (09:37)
[2020-03-31] MEDS ORDERED: CYCLOBENZAPRINE10 MG PO (09:37)
[2020-03-31] MEDS ORDERED: ATROVENT 0.02%2.5 ML UPD (09:38)
[2020-03-31 09:52] VITALS: BP 126/71; Ht 167.6 cm; Wt 85.0 kg
--- NOTE | 2020-03-31 15:07 | NUR ---
1200 PT ARRIVED TO ROOM 2517 WITH A COOL WASHCLOTH OVER HER LEFT EYE. LEFT EYE IS RED AND PT STATES IT FEELS SCRATCHY. ANESTHESIA TO EVALUATE FOR CORNEAL ABRASION.
--- NOTE | 2020-03-31 15:12 | NUR ---
1223 EYE GTTS INSTILLED IN LEFT EYE AND LEFT EYE COVERED WITH A PATCH. FLORENCIA LEON CRNA INSTRUCTED PT TO USE EYE GTTS EVERY 2-3 HOURS AND TO PUT 1-2 GTTS OF MEDICINE IN LEFT EYE. PT VERBALIZES UNDERSTANDING OF INSTRUCTIONS. 1247 IV DC'D. CATHETER TIP INTACT. NO BLEEDING AT SITE. BANDAID APPLIED. 1300 PT IS DRESSED AND HAS MET CRITERIA FOR DISCHARGE. A SEVERE THUNDERSTORM IS DELAYING PT'S DISCHARGE DUE TO SAFETY ISSUES.
--- NOTE | 2020-04-01 07:03 | OP ---
PATIENT NAME: GEORGIA ODONNELL MEDICAL RECORD: [id number] :65 LOCATION:[facility] ADMISSION DATE: SURGEON: HENRY GEORGE DO DATE OF OPERATION: 03/31/2020 PROCEDURE: Colonoscopy with polypectomy. INDICATIONS FOR PROCEDURE: Constipation, lower abdominal pain, abnormal weight loss, nausea. SCOPE: Olympus video pediatric colonoscope. MEDICATIONS: Propofol 250 mg IV per anesthesia. WITHDRAWAL TIME: 14 minutes. ESTIMATED BLOOD LOSS: Minimal. COMPLICATIONS: None. FINDINGS: Informed consent was given. The patient was made comfortable with the above medication. After reaching an adequate level of sedation by slow IV push, the patient was placed on her left side. The endoscope was advanced under direct visualization through the rectum to the cecum, confirmed by the presence of the appendiceal orifice and ileocecal valve. The terminal ileum was briefly intubated and appeared normal. The endoscope was withdrawn slowly while carefully examining the mucosa. The prep quality was good. There were 2 polyps visualized on today's examination. One was located in the ascending colon and the other was located in the descending colon. Polyps ranged in size from 2-4 mm in diameter and were removed using hot forceps. There was evidence of mild diverticulosis involving the descending and sigmoid colon. Retroflexion was performed in the rectum performed in the rectum with normal appearing rectal wall. The endoscope was withdrawn from the patient. The patient tolerated the procedure well and there were no complications. IMPRESSION: 1. Two polyps as described above, removed using hot forceps. 2. Mild diverticulosis of the descending and sigmoid colon. PLAN AND RECOMMENDATIONS: 1. Discharge home when recovery parameters are met. 2. Follow up biopsy specimen results. 3. High fiber diet. 4. Continue current medications. 5. Linzess 145 mcg daily for constipation. 6. Follow up in GI clinic in 6 weeks. 7. Recall colonoscopy in 5 years. TRANSINT:[id number] Voice Confirmation ID: [id number] DOCUMENT ID: [id number] OPERATIVE REPORT [id number] GEORGIA ODONNELL HENRY GEORGE DO at 0703 CC: [id number] DICTATION DATE: 03/31/20 1146 INFORMATION RESOURCE CONSULTANT: 03/31/20 2307 [facility] 03/31/20 [place] [address]
== END 2020-03-31 13:36 | disposition home or self-care (01) ==
LOC: D.OPS 08:11
PROVIDERS: Anesthesiology; ATTEND Internal Medicine Gastroenterology
DX: K59.00 Constipation, unspecified (principal); R10.30 Lower abdominal pain, unspecified; R63.4 Abnormal weight loss; R11.0 Nausea; R13.10 Dysphagia, unspecified

== ENCOUNTER 2020-06-20 06:17 | Day surgery (SDC) | payer MEDICAID ==
[~2020-06-20] VITALS: Ht 167.6 cm; Wt 86.2 kg
[~2020-06-20 06:17] MED LIST changes: +AMOXICILLIN500 M1 PO; +FLUTICASONE PRO16 GM NASAL; +LYRICA225 MG PO; +METHOCARBAMOL500 MG PO; +MORPHINE SULFAT15 M4 PO; +PEPCID AC20 MG PO; +PERCOCET 10-321 EAC1 PO; +ZOLOFT100 MG PO
[2020-06-20 06:49] LABS: HEMATOCRIT 36.3 % (36.0-48.0); MCH 30.3 pg (26.0-34.0); MCHC 33.1 g/dL (31.0-37.0); MCV 91.7 fL (80.0-100.0); MEAN PLATELET VOLUME 9.1 fL (7.4-10.4); RBC 3.96 10x6/uL (4.00-5.40); RDW 13.8 % (11.5-14.5); WBC 5.5 10x3/uL (4.8-10.8)
[2020-06-20 07:03] LABS: ANION GAP 9.8 mmol/L (8-16); CALCIUM 9.6 mg/dL (8.5-10.1); CARBON DIOXIDE 28.8 mmol/L (21.0-32.0); CREATININE - SERUM 1.2 mg/dL (0.6-1.3); POTASSIUM - SERUM 4.6 mmol/L (3.5-5.1)
[2020-06-20 07:57] VITALS: BP 115/64; Ht 167.6 cm; Wt 86.2 kg
--- NOTE | 2020-06-20 14:15 | NUR ---
1230 PT IS CRYING AND RATES HER PAIN LEVEL A 10 OUT OF 10. HAS BEEN OFF OXYGEN FOR 30 MINUTES AND HOLDING HER SATURATIONS TO PREOP READINGS. MEDICATED WITH DILAUDID PO ORDERED. 1300 PT IS NOT CRYING. TALKING AND LAUGHING. IV DC'D. CATHETER TIP INTACT. NO BLEEDING AT SITE. BANDAID APPLIED. PT STATES SHE KNOWS HOW TO WBAT. ADJUSTED CRUTCHES FOR HER HEIGHT.PT DEMONSTRATED ON HOW TO USE CRUTCHES AND WAS STEADY USING CRUTCHES. 1317 DISCHARGED HOME VIA TO PERSONAL VEHICLE.
--- NOTE | 2020-06-23 07:57 | OP ---
PATIENT NAME: GEORGIA ODONNELL MEDICAL RECORD: [id number] :65 LOCATION:[facility] ADMISSION DATE: SURGEON: ATUL DICKSON DO DATE OF OPERATION: 06/20/2020 PROCEDURE PERFORMED: Right knee arthroscopy with lateral meniscal repair and abrasion chondroplasty of the trochlea. PREOPERATIVE DIAGNOSES: Right knee lateral meniscal tear and grade IV chondromalacia of the trochlea. POSTOPERATIVE DIAGNOSES: Right knee lateral meniscal tear and grade IV chondromalacia of the trochlea. INDICATIONS: Ms. Odonnell is a 54-year-old female who has had this knee scoped prior and had ACL repair done. She started to have symptoms of meniscal tear. MRI was done, showing the above findings. I informed her of the risks including retear of meniscus, infection, bleeding, damage to nerves and vessels, need for further surgery, continued pain, loss of motion, blood clots, and even and she signed the consent. SURGEON: Atul Dickson DO DESCRIPTION OF PROCEDURE: The patient was taken to the operative suite, laid in supine position, given 2 g Ancef preoperatively, sedated, and LMA was placed. The right lower extremity was then prepped and draped in sterile fashion. A time-out was performed. Everyone was in agreement with the correct side, site, patient, and procedure. I then began by making an incision over the lateral portal. Trocar entered into the joint and the suprapatellar pouch was inspected. No loose body was seen in the medial or lateral gutters; however, grade IV chondromalacia was seen in the trochlea and grade III on the patella. I then entered the medial compartment, established a medial portal with an 18-gauge spinal needle and 11-blade scalpel, and then brought in the probe. I probed the medial meniscus. There was no tear seen in it. No chondromalacia seen on the medial aspect of the knee either. The ACL was inspected and in good repair. I then [id number]'ed the knee and saw the lateral meniscal tear in the posterior horn of it. I trimmed out on the white-white section, but the red-red tear was repaired with 2 Fast-Fixes and holding it nicely. I then probed it to make sure it was holding and it did hold very well. I then went to patellofemoral joint and did the abrasion chondroplasty of the trochlea. I removed any loose cartilage. I then removed the shaver, turned on the suction, turned the water off, and removed excess fluid from the knee. Noreen Odonnell, certified surgical physician office assistant, then closed the portal sites with 4-0 Monocryl in inverted interrupted fashion, dressed with Steri-Strips, Adaptic, 4 x 4, ABD, Webril, Nilesh wrap, and JOSE hose stocking placed up to the knee. She was then awakened and taken to recovery in stable condition. BLOOD LOSS: Minimal. COMPLICATIONS: None. NTS:[id number] Voice Confirmation ID: [id number] DOCUMENT ID: [id number] OPERATIVE REPORT [id number] GEORGIA ODONNELL MICHAEL D, DO at 0757 CC: [id number] DICTATION DATE: 06/20/20 1413 BISCUIT MACHINE OPERATOR: 06/20/20 193 [facility] 06/20/20 [facility] [address] [place] [address]
--- NOTE | 2020-06-23 13:58 | NUR ---
PT CALLED AT THIS TIME FOR FOLLOWUP PHONE CALL. PT EDUCATED AGAIN ON DISCHARGE INSTRUCTIONS AND DRESSING CARE. PT VERBALIZED UNDERSTANDING.
== END 2020-06-20 13:17 | disposition home or self-care (01) ==
LOC: D.OPS 06:17 → D.PAN 09:30 → D.OPS 09:30
PROVIDERS: Anesthesiology; ATTEND Orthopaedic Surgery
DX: S83.281A Other tear of lateral meniscus, current injury, right knee, initial encounter (principal); X58.XXXA Exposure to other specified factors, initial encounter; M94.261 Chondromalacia, right knee; M25.561 Pain in right knee; J44.9 Chronic obstructive pulmonary disease, unspecified

== ENCOUNTER → 2020-07-15 13:23 | Outpatient (CLI) | payer OTHER, MEDICAID ==
[2020-06-20 07:57] VITALS: BMI 30.7
== END | disposition home or self-care (01) ==
LOC: D.MRI 07-14 10:30
PROVIDERS: ATTEND Orthopaedic Surgery
DX: S83.207A Unspecified tear of unspecified meniscus, current injury, left knee, initial encounter (principal)